=== PATIENT | male | born 1955 | race Hispanic/Latino ===

== ENCOUNTER → 2019-11-08 | Day surgery (SDC) | payer MEDICARE ==
--- NOTE | 2019-10-21 12:36 | Diagnostic Imaging Report ---
Chest, 2 views, 10/21/2019. History: Preop, bladder surgery. Comparison: None available. Findings: The cardiomediastinal silhouette and pulmonary vasculature are within normal limits. The lungs are clear without evidence of consolidation or pleural effusion. Degenerative changes are noted throughout the thoracic spine. There are no acute osseous or soft tissue abnormalities. Impression: No acute cardiopulmonary abnormality. Signed by: King Saldivar on 10/21/2019 12:33 PM
[2019-10-21 13:03] LABS: BASOPHILS % 0.5 % (0.0-1.0); EOSINOPHILS # (AUTO) 0.1 (0.0-0.4); EOSINOPHILS % 1.8 % (0.0-6.0); HEMATOCRIT 46.1 % (38.2-49.6); HEMOGLOBIN 15.6 g/dL (14.0-18.0); LYMPHOCYTES # (AUTO) 2.2 (1.0-3.2); LYMPHOCYTES % 40.7 % (18.0-39.1); MEAN CORPUSCULAR HEMOGLOBIN 28.9 pg (28-32); MEAN CORPUSCULAR HGB CONC 33.8 g/dL (31-35); MEAN CORPUSCULAR VOLUME 85.4 fL (81-99); MONOCYTES # (AUTO) 0.7 (0.2-0.8); MONOCYTES % 12.4 % (4.4-11.3); NEUTROPHILS # (AUTO) 2.4 (2.1-6.9); NEUTROPHILS % 44.4 % (38.7-80.0); PLATELET COUNT 309 x10e3/uL (140-360); RED CELL DISTRIBUTION WIDTH 12.8 % (11.7-14.4)
[~2019-11-08] MED LIST: ACETAMINOPHEN/CODEINE 300MG - 30MG TAB ONE; AMLODIPINE BESY10 MG PO; B&O 60MG R/S 60 MG SUPP PR ONE; CEFAZOLIN SOD 1 GM/NS 50ML 50 ML IV ONE; DEXAMETHASONE SOD PHOS INJ 4 MG/ML VIAL ONE; EPHEDRINE SULFATE INJ 50 MG/ML VIAL ONE; FENTANYL CITRATE/PF 100MCG/2 ML INJ ONE; IOPAMIDOL 300MG/ML 50ML INFUS..BTL IV ONE; LIDOCAINE HCL 2% LOCAL INJ 5 ML SDV VIAL INJ ONE; MICARDIS40 MG PO; MIDAZOLAM HCL 2 MG/2 ML VIAL ONE; NIFEDIPINE ER60 MG PO; ONDANSETRON HCL INJ 2MG/ML 2ML 2 MG/ML VIAL ONE; PROPOFOL IV EMULSION 10 MG/ML 20 ML VIAL ONE; ROCURONIUM BROMIDE 10 MG/ML 5ML VIAL ONE; SEVOFLURANE INHAL SOLN 250 ML PEN BTL ONE; SUGAMMADEX SODIUM 200 MG/2 ML VIAL IV ONE
--- OUTSIDE RECORDS SUMMARY | 2019-11-08 06:15 | XMS REPORT ---
Author Author [facility] Address Unknown Phone Unavailable Care Team Providers Care Video Effects Editor Name Role Phone RISHABH TURNER Unavailable Unavailable GERI WELDON Unavailable Unavailable Problems This patient has no known problems. Allergies, Adverse Reactions, Alerts This patient has no known allergies or adverse reactions. Medications This patient has no known medications. Results Test Description Test Time Test Comments Text Results Atomic Results Result Comments CHEST 2 VIEWS 2019-10-21 12:33:00 [place] [address] Patient Name: MOISÉS RUIZ MR #: [id number] : 1955 Age/Sex: 64/M Req #: [id number] Adm Physician: Ordered by: RISHABH TURNER MD Report #: [id number] Location: OR Room/Bed: Procedure: [id number] DX/CHEST 2 VIEWS Exam Date: 10/21/19 Exam Time: 1210 REPORT STATUS: Signed Chest, 2 views, 10/21/2019. History: Preop, bladd er surgery. Comparison: None available. Findings: The cardiomediastinal silhouette and pulmonary vasculature are within normal limits. The lungs are clear without evidence of consolidation or pleural effusion. Degenerative changes are noted throughout the thoracic spine. There are no acute osseous or soft tissue abnormalities. Impression: No acute cardiopulmonary abnormality. Signed by: Chago Saldivar on 10/21/2019 12:33 PM Dictated By: CHAGO SALDIVAR MD 1233 Transcribed By: PARRISH on 10/21/19 1233 COPY TO: RISHABH TURNER MD CHEST 2 VIEWS 2019-10-07 12:48:00 [place] [address] Patient Name: MOISÉS RUIZ MR #: [id number] : 1955 Age/Sex: 64/M Req #: [id number] Adm Physician: Ordered by: RISHABH TURNER MD Report #: [id number] Location: [facility] Room/Bed: Procedure: [id number] DX/CHEST 2 VIEWS Exam Date: 10/07/19 Exam Time: 1149 REPORT STATUS: Signed EXAMINATION: CHEST 2 VIEWS INDICATION: Hematuria COMPARISON: None FINDINGS: LINES/TUBES:None LUNGS:The lungs are well-inflated. No focal consolidation or pulmonary edema. PLEURA:No pleural effusion or pneumothorax. MEDIASTINUM:The cardiomediastinal silhouette appears normal in size and shape. Atherosclerotic calcifications of the thoracic aorta. BONES/SOFT TISSUES:No acute osseous injury. Mild degenerative changes of the visualized spine. ABDOMEN:No free air under the diaphragm. IMPRESSION: No focal pneumonia or pulmonary edema. Signed by: Ghada Shultz MD on 10/07/2019 12:49 PM Dictated By: GHADA SHULTZ MD 1249 Transcribed By: PARRISH on 10/07/19 1249 COPY TO: RISHABH TURNER MD CT, ABDOMEN 2019-09-12 14:15:00 Reason for exam:->Abdominal painWhat is the patient's sedation requirement?->No Sedation FINAL REPORT ABDOMINAL AND PELVIS CT DATED 09/12/2019 CLINICAL INFORMATION: Abdominal painabdominal pain, hematuria TECHNIQUE: Axial images of the abdomen and pelvis were obtained from diaphragm to the pubic symphysis with intravenous contrast. This exam was performed according to our departmental dose-optimization program, which includes automated exposure control, adjustment of the mA and/or kV according to patient size and/or use of interactive reconstruction technique. COMMENT: Liver and spleen are normal in size without focal abnormality. There is diffusely decreased attenuation liver consistent with a fatty hepatic infiltrate. Gallbladder is contracted. No gallstone or biliary dilatation is noted. Pancreas and adrenals are unremarkable. Both kidneys are normal in size and functioning. No hydronephrosis, hydroureter, urolithiasis is seen. A 2 x 2.1 cm cyst is seen in the upper pole right kidney. 3 additional small subcentimeter cysts are seen in the right kidney measuring up to 8mm in size. Multiple, more than 5, subcentimeter cysts are seen in the left kidney. A 7 mm partially enhancing hypodense lesion is seen in the upper pole left kidney. The urinary bl adder is contracted. A 3.2 x 3.8 cm enhancing mass is seen in the region of the left base of the urinary bladder. Prostate is prominent measuring 3.7 x 4.6 x 4.5 cm. Diverticular disease is seen in the large bowel without diverticulitis. The small bowel and appendix are normal in caliber. IMPRESSION: 1. Mass lesion in the region of the left base of the urinary bladder suspicious for neoplasm. Recommend further evaluation with cystoscopy.2. Bilateral renal cysts.3. Partially enhancing subcentimeter hypodense lesion in the upper pole left kidney. Recommend further evaluation with repeat CT in 6 months.4. Diverticulosis without diverticulitis.5. Fatty liver. Signed: Sabra [place] Verified Date/Time: 09/12/2019 14:15:09 Reading Location: [facility] C013Y CT Body Reading Room ALYSIS W/ MICROSCOPIC 2019-09-12 13:34:00 COLOR (BEAKER) (test lvtb=108) Yellow CLARITY (BEAKER) (test pdtc=625) Clear SPECIFIC GRAVITY UA (BEAKER) (test nupn=083) 1.015 1.001-1.035 PH UA (BEAKER) (test knic=696) 6.5 5.0-8.0 PROTEIN UA (BEAKER) (test frxt=319) 30 mg/dL Negative GLUCOSE UA (BEAKER) (test jdpg=978) Negative Negative KETONES UA (BEAKER) (test luho=675) Negative Negative BILIRUBIN UA (BEAKER) (test wyno=232) Negative Negative BLOOD UA (BEAKER) (test oohv=976) Large Negative NITRITE UA (BEAKER) (test kiux=778) Negative Negative LEUKOCYTE ESTERASE UA (BEAKER) (test xrkg=941) Trace Negative UROBILINOGEN UA (BEAKER) (test lskl=847) 0.2 mg/dL 0.2-1.0 RBC UA (BEAKER) (test kpvw=643) 1468 /HPF WBC UA (BEAKER) (test zslq=085) 27 /HPF MUCUS (BEAKER) (test tdso=1722) Few SOURCE(BEAKER) (test yakl=4043) HEPATIC FUNCTION [id number] 12:09:00* Test Item Value Reference Range Comments TOTAL PROTEIN (BEAKER) (test dyjp=497) 7.0 gm/dL 6.0-8.3 ALBUMIN (BEAKER) (test mvzz=8860) 4.2 g/dL 3.5-5.0 BILIRUBIN TOTAL (BEAKER) (test aepr=149) 0.6 mg/dL 0.2-1.2 BILIRUBIN DIRECT (BEAKER) (test jmgf=649) 0.2 mg/dL 0.1-0.5 ALKALINE PHOSPHATASE (BEAKER) (test ddqv=905) 85 U/L 40-150 AST (SGOT) (BEAKER) (test ivnw=486) 18 U/L 5-34 ALT (SGPT) (BEAKER) (test vkbm=528) 23 U/L 6-55 BASIC METABOLIC [id number] 12:09:00* Test Item Value Reference Range Comments SODIUM (BEAKER) (test bosx=821) 140 meq/L 136-145 POTASSIUM (BEAKER) (test tuqq=128) 3.8 meq/L 3.5-5.1 CHLORIDE (BEAKER) (test cmvf=588) 106 meq/L 98-107 CO2 (BEAKER) (test glux=131) 26 meq/L 22-29 BLOOD UREA NITROGEN (BEAKER) (test tzsh=874) 15 mg/dL 7-21 CREATININE (BEAKER) (test qkfx=250) 0.88 mg/dL 0.57-1.25 GLUCOSE RANDOM (BEAKER) (test fylx=669) 105 mg/dL 70-105 CALCIUM (BEAKER) (test sson=159) 9.1 mg/dL 8.4-10.2 EGFR (BEAKER) (test ondf=3664) INSUFFICIENT CLINICAL DATA TO CALCULATE ESTIMATED GFR. PT/[id number] 12:03:00* Test Item Value Reference Range Comments PROTIME (BEAKER) (test ooay=327) 14.0 seconds 11.9-14.2 INR (BEAKER) (test fvkk=006) 1.1 <=5.9 PARTIAL THROMBOPLASTIN TIME (BEAKER) (test atmx=998) 31.8 seconds 22.5-36.0 Effective 02/16/2019: PT Reference Range ChangeNew: 11.9-14.2 Previous: 11.7-14. 7RECOMMENDED COUMADIN/WARFARIN INR THERAPY RANGESSTANDARD DOSE: 2.0-3.0 Include s: PROPHYLAXIS for venous thrombosis, systemic embolization; TREATMENT for venou s thrombosis and/or pulmonary embolus.HIGH RISK: Target INR is 2.5-3.5 for patie nts wiht mechanical heart valves.CBC W/PLT COUNT & AUTO [id number] 11:55:00* Test Item Value Reference Range Comments WHITE BLOOD CELL COUNT (BEAKER) (test stjc=029) 5.1 K/ L 3.5-10.5 RED BLOOD CELL COUNT (BEAKER) (test xnlf=404) 5.56 M/ L 4.63-6.08 HEMOGLOBIN (BEAKER) (test qinc=250) 15.9 GM/DL 13.7-17.5 HEMATOCRIT (BEAKER) (test bces=137) 47.3 % 40.1-51.0 MEAN CORPUSCULAR VOLUME (BEAKER) (test ekyn=974) 85.1 fL 79.0-92.2 MEAN CORPUSCULAR HEMOGLOBIN (BEAKER) (test fpsz=544) 28.6 pg 25.7-32.2 MEAN CORPUSCULAR HEMOGLOBIN CONC (BEAKER) (test qple=833) 33.6 GM/DL 32.3-36.5 RED CELL DISTRIBUTION WIDTH (BEAKER) (test ffhz=578) 12.8 % 11.6-14.4 PLATELET COUNT (BEAKER) (test jlba=242) 291 K/CU MM 150-450 MEAN PLATELET VOLUME (BEAKER) (test lvxg=296) 9.0 fL 9.4-12.4 NUCLEATED RED BLOOD CELLS (BEAKER) (test bwmd=564) 0 /100 WBC 0-0 NEUTROPHILS RELATIVE PERCENT (BEAKER) (test ydrf=860) 51 % LYMPHOCYTES RELATIVE PERCENT (BEAKER) (test hdrc=449) 36 % MONOCYTES RELATIVE PERCENT (BEAKER) (test hwqb=547) 10 % EOSINOPHILS RELATIVE PERCENT (BEAKER) (test giay=632) 2 % BASOPHILS RELATIVE PERCENT (BEAKER) (test mbkf=786) 1 % NEUTROPHILS ABSOLUTE COUNT (BEAKER) (test efmp=018) 2.58 K/ L 1.78-5.38 LYMPHOCYTES ABSOLUTE COUNT (BEAKER) (test yhxf=924) 1.83 K/ L 1.32-3.57 MONOCYTES ABSOLUTE COUNT (BEAKER) (test rjsu=319) 0.53 K/ L 0.30-0.82 EOSINOPHILS ABSOLUTE COUNT (BEAKER) (test rqtd=124) 0.12 K/ L 0.04-0.54 BASOPHILS ABSOLUTE COUNT (BEAKER) (test pjak=292) 0.04 K/ L 0.01-0.08 IMMATURE GRANULOCYTES-RELATIVE PERCENT (BEAKER) (test mdfw=0529) 0 % 0-1
[2019-11-08 12:00] VITALS: BP 162/88
--- NOTE | 2019-11-08 21:39 | Operative Report ---
DATE OF PROCEDURE: 11/08/2019 SURGEON: Mil Trujillo MD PREOPERATIVE DIAGNOSES: 1. Hematuria. 2. Bladder tumour. 3. Obstructed left ureteral orifice. 4. Frequency. 5. BPH. POSTOPERATIVE DIAGNOSES: 1. Hematuria. 2. Bladder tumour. 3. Obstructed left ureteral orifice. 4. Frequency. 5. BPH. OPERATIONS PERFORMED: 1. Cystoscopy and right retrograde pyelograms under fluoroscopic control. This was done as part of the assessment of hematuria, not related to other side. 2. Left retrograde pyelograms under fluoroscopic control. The orifice is covered by the bladder tumor. 3. Placement of double-J stent, 7-Lebanese 24 cm long to the left side. 4. Interpretation of x-ray, radiologist not present. 5. Supervision of fluoroscopy, radiologist not present. 6. Transurethral resection of tumor, larger than 5 cm. CORPORATE COUNSEL: None. ANESTHESIA: General. CLINICAL INDICATION NOTE: This is a 64-year-old patient was brought for assessment of hematuria and suspected tumour of the bladder. The procedure was discussed with the patient. Potential benefits and complications discussed, explained, and accepted. DESCRIPTION OF PROCEDURE AND FINDINGS: After proper level of anesthesia was achieved, the patient was placed in lithotomy position, prepped and draped in a sterile fashion. dilated to 28-Lebanese. Following this, the scope was inserted. The bladder outlet was obstructed, very small prostate, 3 lobal prostate, 2 lateral and 1 medial. The bladder itself was trabeculated. The right UO was identified easily. On the left side of the bladder, there was large tumour covering the area of the trigone where the UO was expected. Open-end catheter was inserted to the right side and retrograde pyelogram demonstrated normal upper collecting system and ureter. With some difficulty, it was possible to place a catheter into the left collecting system. Retrograde pyelogram did not demonstrate hydronephrosis. The wire was kept in place and a 7-Lebanese 24 cm long double-J stent was properly positioned. Following this, resectoscope was inserted and systematic resection of all the tumour on the left side of the bladder was done. The superficial and deep cut were altogether to Pathology for analysis. Any visible bleeding points were carefully coagulated. Following the resection, any remnant chips in the bladder was evacuated and the bladder was irrigated with water. Following this, a 22-Lebanese 30 mL balloon Reid catheter three way was inserted, connected to continuous irrigation with water. The patient was transferred in satisfactory condition to recovery room. If no problem will occur, he will be discharged with a Reid and will be followed as outpatient. MD DALLAS Melo/CARI /[id number]
== END | disposition home or self-care (01) ==
LOC: OR 06:12
PROVIDERS: ATTEND Urology
DX: C67.0 Malignant neoplasm of trigone of bladder (principal); N13.5 Crossing vessel and stricture of ureter without hydronephrosis; N40.0 Benign prostatic hyperplasia without lower urinary tract symptoms; N32.89 Other specified disorders of bladder; I10 Essential (primary) hypertension; E11.9 Type 2 diabetes mellitus without complications; K58.9 Irritable bowel syndrome, unspecified; M54.9 Dorsalgia, unspecified; E78.5 Hyperlipidemia, unspecified; F32.9 Major depressive disorder, single episode, unspecified; Z01.810 Encounter for preprocedural cardiovascular examination; Z01.812 Encounter for preprocedural laboratory examination; Z01.818 Encounter for other preprocedural examination
CPT/HCPCS: 36415 ×2; 52240; 52332; 71046; 74420; 82948; 85025; 88305; 93005; C1758; C2617; J0690; J1100; J2001; J2250; J2405; J2704; J3010; Q9967

== ENCOUNTER 2019-11-10 20:13 | Emergency (ER) | payer MEDICARE ==
[~2019-11-10] VITALS: Ht 172.7 cm; Wt 78.0 kg
[~2019-11-10 20:13] MED LIST changes: -ACETAMINOPHEN/CODEINE 300MG - 30MG TAB ONE; -B&O 60MG R/S 60 MG SUPP PR ONE; -CEFAZOLIN SOD 1 GM/NS 50ML 50 ML IV ONE; -DEXAMETHASONE SOD PHOS INJ 4 MG/ML VIAL ONE; -EPHEDRINE SULFATE INJ 50 MG/ML VIAL ONE; -FENTANYL CITRATE/PF 100MCG/2 ML INJ ONE; -IOPAMIDOL 300MG/ML 50ML INFUS..BTL IV ONE; -LIDOCAINE HCL 2% LOCAL INJ 5 ML SDV VIAL INJ ONE; -MIDAZOLAM HCL 2 MG/2 ML VIAL ONE; -ONDANSETRON HCL INJ 2MG/ML 2ML 2 MG/ML VIAL ONE; -PROPOFOL IV EMULSION 10 MG/ML 20 ML VIAL ONE; -ROCURONIUM BROMIDE 10 MG/ML 5ML VIAL ONE; -SEVOFLURANE INHAL SOLN 250 ML PEN BTL ONE; -SUGAMMADEX SODIUM 200 MG/2 ML VIAL IV ONE
[2019-11-10] MEDS ORDERED: HYDROMORPHONE 1MG/1ML INJ IV STA (20:47)
[2019-11-10] MEDS ORDERED: ONDANSETRON HCL INJ 2MG/ML 2ML 2 MG/ML VIAL IV STA (20:47)
[2019-11-10 21:23] LABS: BASOPHILS % 0.3 % (0.0-1.0); EOSINOPHILS % 0.4 % (0.0-6.0); HEMATOCRIT 51.1 % (38.2-49.6); HEMOGLOBIN 17.5 g/dL (14.0-18.0); LYMPHOCYTES # (AUTO) 1.3 (1.0-3.2); LYMPHOCYTES % 12.2 % (18.0-39.1); MEAN CORPUSCULAR HEMOGLOBIN 29.2 pg (28-32); MEAN CORPUSCULAR HGB CONC 34.2 g/dL (31-35); MEAN CORPUSCULAR VOLUME 85.3 fL (81-99); MONOCYTES # (AUTO) 0.7 (0.2-0.8); MONOCYTES % 6.4 % (4.4-11.3); NEUTROPHILS # (AUTO) 8.8 (2.1-6.9); NEUTROPHILS % 80.4 % (38.7-80.0); PLATELET COUNT 302 x10e3/uL (140-360); RED BLOOD COUNT 5.99 x10e6/uL (4.3-5.7); RED CELL DISTRIBUTION WIDTH 12.8 % (11.7-14.4)
[2019-11-10 21:43] LABS: ALBUMIN 4.1 g/dL (3.5-5.0); ALBUMIN/GLOBULIN RATIO 1.2 (0.8-2.0); ANION GAP 14.6 mmol/L (8-16); CREATININE, SERUM 1.22 mg/dL (0.72-1.25); POTASSIUM 3.6 mmol/L (3.5-5.1)
[2019-11-10] MEDS ORDERED: LIDOCAINE JELLY 2% 10ML URO-JET TOP ONE (21:45)
[2019-11-10 22:19] LABS: CLARITY,URINE CLOUDY (CLEAR); COLOR,URINE RED (YELLOW)
[2019-11-10 22:20] LABS: BILIRUBIN,URINE SMALL (NEGATIVE); KETONES,URINE 1+ (NEGATIVE); LEUKOCYTE ESTERASE ,URINE TRACE (NEGATIVE); PROTEIN,URINE DIPSTICK 3+ (NEGATIVE); URINE UROBILINOGEN 1 mg/dL (0.2 - 1)
[2019-11-10 22:26] LABS: NITRITE,URINE NEGATIVE (NEGATIVE); WBC,URINE (MAN) 0-5 /HPF (0-5)
[2019-11-10 22:27] LABS: BACTERIA,URINE RARE /HPF; EPITHELIAL CELLS,URINE RARE /LPF; RBC,URINE 21-50 /HPF (0-5)
[2019-11-10 22:44] VITALS: BP 146/114
== END 2019-11-10 23:18 | disposition home or self-care (01) ==
LOC: ER 20:13
DX: R10.32 Left lower quadrant pain (principal); R33.9 Retention of urine, unspecified; N40.1 Benign prostatic hyperplasia with lower urinary tract symptoms; I10 Essential (primary) hypertension; Z85.51 Personal history of malignant neoplasm of bladder
CPT/HCPCS: 36415; 51703; 80053; 81001; 85025; 87086; 99284; J1170; J2405

== ENCOUNTER 2019-11-12 07:36 | Inpatient (IN) | payer MEDICARE ==
[2019-11-12] VITALS (8 sets, daily range): BP systolic 107–151; BP diastolic 80–97
[~2019-11-12] VITALS: Ht 172.7 cm; Wt 78.0 kg
--- NOTE | 2019-11-12 08:07 | NUR ---
BLADDER SCANNER FOUND 15-30 MLS URINE IN BLADDER ON ARRIVAL TO HOSPITAL
[2019-11-12] MEDS ORDERED: SODIUM CHLORIDE 0.9% 1000ML 1,000 ML IV STA (08:15)
[2019-11-12 08:16] LABS: BASOPHILS % 0.3 % (0.0-1.0); EOSINOPHILS # (AUTO) 0.2 (0.0-0.4); EOSINOPHILS % 1.4 % (0.0-6.0); HEMATOCRIT 48.3 % (38.2-49.6); HEMOGLOBIN 16.4 g/dL (14.0-18.0); LYMPHOCYTES # (AUTO) 1.6 (1.0-3.2); LYMPHOCYTES % 13.7 % (18.0-39.1); MEAN CORPUSCULAR VOLUME 85.3 fL (81-99); MONOCYTES % 8.9 % (4.4-11.3); NEUTROPHILS # (AUTO) 8.6 (2.1-6.9); NEUTROPHILS % 75.3 % (38.7-80.0); PLATELET COUNT 325 x10e3/uL (140-360); RED BLOOD COUNT 5.66 x10e6/uL (4.3-5.7); RED CELL DISTRIBUTION WIDTH 12.9 % (11.7-14.4)
[2019-11-12 08:22] LABS: COLOR,URINE AMBER (YELLOW)
[2019-11-12 08:23] LABS: KETONES,URINE TRACE (NEGATIVE); LEUKOCYTE ESTERASE ,URINE TRACE (NEGATIVE); NITRITE,URINE POSITIVE (NEGATIVE); PROTEIN,URINE DIPSTICK 3+ (NEGATIVE); URINE UROBILINOGEN 1 mg/dL (0.2 - 1)
[2019-11-12 08:24] LABS: BILIRUBIN,URINE MODERATE (NEGATIVE); CLARITY,URINE CLOUDY (CLEAR)
[2019-11-12 08:37] LABS: BACTERIA,URINE MODERATE /HPF; RBC,URINE >50 /HPF (0-5)
[2019-11-12 08:38] LABS: EPITHELIAL CELLS,URINE FEW /LPF; MUCUS,URINE FEW (RARE)
[2019-11-12 08:41] LABS: ALANINE AMINOTRANSFERASE 31 IU/L (0-55); ALBUMIN 3.8 g/dL (3.5-5.0); ALBUMIN/GLOBULIN RATIO 1.2 (0.8-2.0); ALKALINE PHOSPHATASE 89 IU/L (40-150); ANION GAP 13.6 mmol/L (8-16); BLOOD UREA NITROGEN 23 mg/dL (7-26); BUN/CREATININE RATIO 22 (6-25); CALCIUM 9.5 mg/dL (8.4-10.2); CARBON DIOXIDE 28 mmol/L (22-29); CHLORIDE 100 mmol/L (98-107); CREATININE, SERUM 1.03 mg/dL (0.72-1.25); EST GLOMERULAR FILTRATION RATE > 60 ML/MIN (60-); GLUCOSE 147 mg/dL (74-118); POTASSIUM 3.6 mmol/L (3.5-5.1); SODIUM 138 mmol/L (136-145)
--- NOTE | 2019-11-12 09:19 | Diagnostic Imaging Report ---
EXAM: CT Abdomen and Pelvis WITHOUT contrast INDICATION: ^Stone Protocol, BLAD TUMOR RESECTED 11/08, LEFT STENT, PAIN ^[id number] ^[id number] ^Y COMPARISON: None. TECHNIQUE: Abdomen and pelvis were scanned utilizing a multidetector helical scanner from the lung base to the pubic symphysis without administration of IV contrast. Absence of intravenous contrast decreases sensitivity for detection of focal lesions and vascular pathology. Coronal and sagittal reformations were obtained. Routine protocol was performed. IV CONTRAST: None ORAL CONTRAST: Water COMPLICATIONS: None RADIATION DOSE: Total DLP: 319.26 mGy-cm Estimated effective dose: (DLP x 0.015 x size factor) mSv CTDIvol has been reviewed. It is below the limits set by the Radiation Protocol Committee (RPC). FINDINGS: LINES and TUBES: There is a left nephroureteral stent placed. LOWER THORAX: There is bibasilar atelectasis. HEPATOBILIARY: No biliary ductal dilation. GALLBLADDER: No radio-opaque stones or sludge. No wall thickening. SPLEEN: No splenomegaly. PANCREAS: No focal masses or ductal dilatation. ADRENALS: No adrenal nodules KIDNEYS/URETERS: No hydronephrosis. There is a 2.2 complex cyst arising from upper pole of the right kidney. There is a 3.1 cm exophytic lesion arising from upper pole left kidney (series 3, image 44). Both of the aforementioned lesions are incompletely characterized exam on this noncontrast exam. No stones.There is a left nephroureteral stent in place. GI TRACT: No abnormal distention, wall thickening, or evidence of bowel obstruction. Appendix is normal. PELVIC ORGANS/BLADDER: The bladder is thick walled surrounding a Reid catheter likely due to underdistention. LYMPH NODES: No lymphadenopathy. VESSELS: Unremarkable. PERITONEUM / RETROPERITONEUM: No free air or fluid. BONES: There are degenerative changes in the lumbar spine. SOFT TISSUES: Unremarkable. IMPRESSION: Left nephroureteral stent in place. No nephroureterolithiasis or hydroureteronephrosis. Bilateral renal lesions as described are incompletely characterized on this noncontrast exam. Recommend follow-up nonemergent CT multiphase renal protocol. Signed by: Saul Solares MD on 11/12/2019 9:17 AM
[2019-11-12] MEDS ORDERED: MORPHINE SULFATE 2 MG/ML SYR 1ML IV STA (09:49)
[2019-11-12] MEDS ORDERED: ONDANSETRON HCL INJ 2MG/ML 2ML 2 MG/ML VIAL IV STA (09:49)
[2019-11-12] MEDS ORDERED: MEROPENEM 1 GM VIAL ONE (09:52)
[2019-11-12] MEDS ORDERED: SODIUM CHLORIDE 0.9% 100 ML ONE (09:54)
--- NOTE | 2019-11-12 11:18 | NUR ---
H&P cc: left flank pain HPI: 64yoM, PCP , with bladder mass, underwent resection 4 days ago, with stent placed to left ureter?, now developed left flank pain with chills. Pain radiate to left groin. PMH: bladder mass s/p resection 4 days ago (10/2019), HTN, PreDM PSHx: bladder mass resection Allergie;s see emr FH/SH; ; no cigs meds; see MAR ROS: no f/cp/sob/dizziness/cp/skin rash/diarrhea/nausea/confusion/focal limb weakness v/s; revd PE tired appearing anicteric ns1s2 mod bs soft; left flank tender; Mock in place no e/t skin dry n. affect labs/meds revd A/P: Complicated UTI- merrem Acute left phyelonephritis- iv abx Left utereteral disease- stent placed HTN- home meds PreDM- check labs Overweight BMI 26.2 Prop: scd Dispo; f/u labs; Rick Moss MD,PhD
[2019-11-12] MEDS: SODIUM CHLORIDE 0.9% 1000ML 1,000 ML IV SCH ×2 (11:23→19:50)
--- NOTE | 2019-11-12 11:29 | NUR ---
DR MONTAÑO AT BS FOR [place]
[2019-11-12] MEDS ORDERED: ACETAMINOPHEN 325 MG TAB PO PRN (11:30)
[2019-11-12] MEDS: NIFEDIPINE CR 30 MG TAB PO SCH (11:57)
[2019-11-12] MEDS ORDERED: MEROPENEM 1GRAM 1 GM in SODIUM CHLORIDE 0.9% 100 ML 100 ML IV SCH (14:00)
[2019-11-12] MEDS: MORPHINE SULFATE INJ 4 MG/ML INJ 1ML IV PRN (15:05)
[2019-11-12] MEDS ORDERED: MEROPENEM 1GM 100 ML IV SCH (18:00)
[2019-11-12] MEDS: DOCUSATE SODIUM 100 MG CAP PO SCH (18:19)
--- NOTE | 2019-11-12 19:37 | NUR ---
patient c/o left flank pain, states "No one is listening to me, the doctors or the nurses, I dont get relief from this pain, pain is getting worse" states s/p left urinary stent placement states "after two days pain became worse not better on day 2", requesting that MD be notified of his pain, and area of pain, requesting US or the area be completed for evaluation
--- NOTE | 2019-11-12 19:46 | NUR ---
JACQUELINECORBIN NOTIFIED " THAT PATIENT IS REQUESTING CONSULT WITH HIM BECAUSE HE REMAIN IN PAIN WITH NO RELIEF FROM MORPHINE", HE STATED "I DIDNT PUT THE STENT IN MD TURNER PLACED WITH STENT, AND THE PAIN IS NORMAL", PATIENT WAS INFORMED THAT THE DISCOMFORT FROM THE STENT PLACEMENT IS NORMAL AND WILL SUBSIDE WTIH TIME, WE WILL CLOSELY MONITOR PATIENT AND ADMINISTER PAIN MEDICATION, CONTINUE TO COMPLAIN OF CONSTIPATION, PRUNE JUICE GIVEN, STOOL SOFTENERS ON BOARD
--- NOTE | 2019-11-12 20:42 | NUR ---
patient and family requesting something for constipation MD Clovis MONTAÑO CONTACT VIA TELEPHONE
[2019-11-12] MEDS ORDERED: ZOLPIDEM TARTRATE 5 MG TAB PO PRN (21:00)
--- NOTE | 2019-11-12 21:10 | NUR ---
MD MONTAÑO CONTACTED VIA TELEPHONE, INFORMED THAT PATIENT IS CONSTIPATED IN PAIN UNABLE TO HAVE BM, GFR LAB GIVEN, ORDERED MOM 30CCC PO NOW, AND THEN DAILY, ORDERED TO CONTINUE COLACE BID, START SENNA 1 TABLET NOW AND THEN BID, ORDER CARRIED OUT PATIENT AND FAMILY INFORMED OF PLAN OF CARE
[2019-11-12] MEDS ORDERED: MAGNESIUM HYDROXIDE 30 ML UDC PO ONE (21:15)
[2019-11-12] MEDS: SENNOSIDES 8.6 MG TAB PO SCH (21:35)
[2019-11-12] MEDS: ONDANSETRON HCL INJ 2MG/ML 2ML 2 MG/ML VIAL IV PRN (22:28)
--- NOTE | 2019-11-12 22:41 | NUR ---
PARKINSON DUMPED 600CC/TANIYA COLORED URINE WITH SEDIMENTATION, PATIENT C/O NAUSEA, STATED "i NEED TO MAKE MYSELF THROWUP", PLACED HIS FINGER DOWN THROAT TO INDUCE VOMITING, AFTERWARD, RESTING IN BED, ZOFRAN IV GIVEN, NO CURRENT EPISODE OF N/V, PATIENT CONTINUES TO STATE "IT HURTS WHEN I PEE", PARKINSON IN PLACE DRAINING WELL, RESUME IRRIGATION STATING "OH HELL NO IT WILL HURT TO BAD", NO IRRIGATION PERFORMED, PATIENT FAMILY AND AT BEDSIDE, VISIBLY AND VERBALLY UPSET ABOUT PATIENT BEING IN PAIN, MD MONTAÑO CALLED MADE AWARE VIA TELEPHONE, THAT " PATIENT IS NAUSEATED, VOMITING, AND HIS DURING PALPATION IS MORE RIGID THAN AT BEFORE, BUT HAS GOOD BOWEL SOUNDS", ORDERED TO MAKE PATIENT NPO, GIVEN PHENERGAN IV IF ZOFRAN INEFFECTIVE, PATIENT RESTING IN BED WITH LEFT AC IV PATENT, NO INFILTRATION NOTED, IV HYDRATION INFUSING AT CURRENT ORDERED RATE
[2019-11-12] MEDS ORDERED: PROMETHAZINE 12.5MG/ NACL 0.9% 12.5 MG/50 ML BAG IV PRN (22:45)
[2019-11-13] VITALS (9 sets, daily range): BP systolic 108–144; BP diastolic 63–95
[2019-11-13] MEDS: MEROPENEM 1GM 100 ML IV SCH ×4 (02:11→21:00)
[2019-11-13 05:21] LABS: BASOPHILS % 0.4 % (0.0-1.0); EOSINOPHILS # (AUTO) 0.3 (0.0-0.4); EOSINOPHILS % 3.1 % (0.0-6.0); HEMATOCRIT 41.1 % (38.2-49.6); HEMOGLOBIN 13.6 g/dL (14.0-18.0); LYMPHOCYTES # (AUTO) 1.4 (1.0-3.2); LYMPHOCYTES % 17.2 % (18.0-39.1); MEAN CORPUSCULAR HEMOGLOBIN 28.5 pg (28-32); MEAN CORPUSCULAR HGB CONC 33.1 g/dL (31-35); MEAN CORPUSCULAR VOLUME 86.2 fL (81-99); NEUTROPHILS # (AUTO) 5.6 (2.1-6.9); NEUTROPHILS % 66.8 % (38.7-80.0); PLATELET COUNT 282 x10e3/uL (140-360); RED BLOOD COUNT 4.77 x10e6/uL (4.3-5.7); RED CELL DISTRIBUTION WIDTH 12.7 % (11.7-14.4)
[2019-11-13 05:47] LABS: ALANINE AMINOTRANSFERASE 23 IU/L (0-55); ALBUMIN 3.1 g/dL (3.5-5.0); ALBUMIN/GLOBULIN RATIO 1.1 (0.8-2.0); ALKALINE PHOSPHATASE 72 IU/L (40-150); ANION GAP 10.5 mmol/L (8-16); BLOOD UREA NITROGEN 17 mg/dL (7-26); BUN/CREATININE RATIO 20 (6-25); CALCIUM 8.7 mg/dL (8.4-10.2); CARBON DIOXIDE 28 mmol/L (22-29); CHLORIDE 105 mmol/L (98-107); CREATININE, SERUM 0.84 mg/dL (0.72-1.25); EST GLOMERULAR FILTRATION RATE > 60 ML/MIN (60-); GLUCOSE 106 mg/dL (74-118); POTASSIUM 3.5 mmol/L (3.5-5.1); SODIUM 140 mmol/L (136-145)
--- NOTE | 2019-11-13 07:03 | NUR ---
BSSR GIVEN TO ONCOMING SHIFT RN KAITLYN , PATIENT STABLE, VSS, AFEBRILE, IN BED, CALL LIGHT WITHIN REACH, VERBALIZED PATIENT CONTINUED PLAN OF CARE, BED IN LOWEST POSITION, LABS PENDING THIS AM
--- NOTE | 2019-11-13 07:08 | NUR ---
IM- progress note O/N see below ROS: no f/cp/sob/dizziness/cp/skin rash/diarrhea/nausea/confusion/focal limb weakness v/s; revd PE tired appearing anicteric ns1s2 mod bs soft; left flank tender; Mock in place no e/t skin dry n. affect labs/meds revd A/P: Complicated UTI- merrem Acute left phyelonephritis- iv abx Left utereteral disease- stent placed HTN- home meds PreDM- check labs Overweight BMI 26.2 Prop: scd Dispo; f/u labs; 11/13 cont care; f/u cultures; Rick Moss MD,PhD
[2019-11-13 07:37] LABS: CHOL/HDL RATIO 3.4 (3.9-4.7)
[2019-11-13] MEDS: NIFEDIPINE CR 30 MG TAB PO SCH ×2 (09:00→14:32)
[2019-11-13] MEDS ORDERED: AMLODIPINE BESYLATE 10 MG TAB PO SCH (09:00)
[2019-11-13] MEDS: SENNOSIDES 8.6 MG TAB PO SCH ×3 (09:00→14:40)
[2019-11-13] MEDS: DOCUSATE SODIUM 100 MG CAP PO SCH ×2 (09:00→14:32)
[2019-11-13] MEDS ORDERED: MAGNESIUM HYDROXIDE 30 ML UDC PO PRN (09:00)
[2019-11-13] MEDS ORDERED: BISACODYL 10 MG SUPP PR ONE (12:00)
[2019-11-13] MEDS: MORPHINE SULFATE INJ 4 MG/ML INJ 1ML IV PRN ×2 (14:14→22:30)
--- NOTE | 2019-11-13 19:10 | NUR ---
BEDSIDE SHIFT REPORT RECEIVED FROM PIEDAD SAHNI, PATIENT AOX4, FAMILY AT BEDSIDE, REPORTED PATIENT HAD MULTIPLE BM TODAY, PAIN LEVEL MORE TOLERABLE, BED IN LOWEST POSITION, CALL LIGHT WITHIN REACH
[2019-11-13] MEDS: ONDANSETRON HCL INJ 2MG/ML 2ML 2 MG/ML VIAL IV PRN (22:30)
[2019-11-14] VITALS (12 sets, daily range): BP systolic 128–161; BP diastolic 77–88
[2019-11-14] MEDS: MEROPENEM 1GM 100 ML IV SCH ×3 (05:03→22:06)
--- NOTE | 2019-11-14 07:05 | NUR ---
bedside shift report received from regulatory affairs portfolio leader RN, kern in place, draining straw-colored urine. pt has no complaints at this time, no signs of distress.
[2019-11-14] MEDS: NIFEDIPINE CR 30 MG TAB PO SCH (09:10)
[2019-11-14] MEDS: SENNOSIDES 8.6 MG TAB PO SCH (09:13)
[2019-11-14] MEDS: DOCUSATE SODIUM 100 MG CAP PO SCH ×2 (09:13→17:54)
--- NOTE | 2019-11-14 11:57 | NUR ---
IM- progress note O/N see below ROS: no f/cp/sob/dizziness/cp/skin rash/diarrhea/nausea/confusion/focal limb weakness v/s; revd PE tired appearing anicteric ns1s2 mod bs soft; left flank tender; Mock in place no e/t skin dry n. affect labs/meds revd A/P: Complicated UTI- merrem Acute left phyelonephritis- iv abx Left utereteral disease- stent placed HTN- home meds PreDM- check labs Overweight BMI 26.2 Prop: scd Dispo; f/u labs; 11/13 cont care; f/u cultures; 11/14 iv abx; advance diet; d/c planning; Rick Moss MD,PhD
--- NOTE | 2019-11-14 14:34 | NUR ---
spoke with Dr. Albrecht concerning pt's complaint of left flank pain. Dr. Albrecht states he has spoken with the pt and told him the pain he is experiencing is normal and that we cannot remove the kern at this time. Pt given IV Morphine and Zofran for pain. will continue to monitor.
[2019-11-14] MEDS: MORPHINE SULFATE INJ 4 MG/ML INJ 1ML IV PRN ×2 (14:40→19:26)
[2019-11-14] MEDS: ONDANSETRON HCL INJ 2MG/ML 2ML 2 MG/ML VIAL IV PRN ×2 (14:40→19:26)
--- NOTE | 2019-11-14 19:26 | NUR ---
Patient received sitting up in bed. AAO x 4. Patient had no complaints of left flank pain(7/10). Respirations even and non-labored. Fall precautions implemented. Patient instructed to call for assistance when needed. Call light within reach.
[2019-11-15 00:43] VITALS: BP 121/60
[2019-11-15] MEDS: MORPHINE SULFATE INJ 4 MG/ML INJ 1ML IV PRN ×3 (04:27→15:11)
[2019-11-15 05:12] VITALS: BP 148/68
[2019-11-15] MEDS: MEROPENEM 1GM 100 ML IV SCH ×2 (05:54→14:00)
--- NOTE | 2019-11-15 06:49 | NUR ---
D/C summary Principal Dx: Complicated UTI- merrem Acute left phyelonephritis- iv abx Left utereteral disease- stent placed Secondary Dx: HTN- home meds PreDM- check labs Overweight BMI 26.2 Prop: scd Dispo; f/u labs; 11/13 cont care; f/u cultures; 11/14 iv abx; advance diet; d/c planning; 11/15 stable d/c home f/u pcp 2-4 days stable d/c>35mins Rick Moss MD,PhD
--- NOTE | 2019-11-15 07:00 | NUR ---
Walking rounds done. Patient resting comfortably. BSSR given to oncoming nurse.
--- NOTE | 2019-11-15 07:07 | NUR ---
bedside shift report received, no signs of distress. kern in place, draining clear, yellow urine. pt has no complaints at this time.
[2019-11-15 07:51] VITALS: BP 144/79
[2019-11-15 07:56] VITALS: BP 144/79
[2019-11-15] MEDS ORDERED: ONDANSETRON HCL 4 MG ORAL DISINTEGRATING TAB PO PRN (09:15)
--- NOTE | 2019-11-15 09:45 | NUR ---
IMM letter delivered and explained to pt and family at bedside. They verbalized understanding. Signed copy placed in chart. Copy to pt.
[2019-11-15] MEDS: NIFEDIPINE CR 30 MG TAB PO SCH (11:12)
[2019-11-15] MEDS: DOCUSATE SODIUM 100 MG CAP PO SCH ×2 (11:12→17:52)
[2019-11-15] MEDS: SENNOSIDES 8.6 MG TAB PO SCH (11:12)
[2019-11-15 11:52] VITALS: BP 152/92
[2019-11-15 16:28] VITALS: BP 177/104
[2019-11-15] MEDS ORDERED: KEFLEX500 MG PO (17:31)
== END 2019-11-15 18:06 | disposition home or self-care (01) | DRG 699 ==
LOC: ER 07:36 → ERHOLD 09:57 → MED/SURG2 12:10
PROVIDERS: ADMIT Internal Medicine; ATTEND Internal Medicine
DX: T83.592A Infection and inflammatory reaction due to indwelling ureteral stent, initial encounter (principal); N10 Acute pyelonephritis; I10 Essential (primary) hypertension; R73.03 Prediabetes; E66.3 Overweight; Z68.26 Body mass index [BMI] 26.0-26.9, adult; Z96.0 Presence of urogenital implants; Z98.890 Other specified postprocedural states
CPT/HCPCS: 36415; 74176; 80053; 80061; 81001; 83036; 85025; 87086; 96360; 99284; J2185; J2270; J2405; J7030; J7050

== ENCOUNTER → 2020-01-19 | Day surgery (SDC) | payer MEDICARE ==
[2020-01-17 12:35] LABS: BASOPHILS % 0.6 % (0.0-1.0); EOSINOPHILS # (AUTO) 0.2 (0.0-0.4); EOSINOPHILS % 3.7 % (0.0-6.0); HEMATOCRIT 40.5 % (38.2-49.6); HEMOGLOBIN 14.2 g/dL (14.0-18.0); LYMPHOCYTES # (AUTO) 2.6 (1.0-3.2); LYMPHOCYTES % 40.3 % (18.0-39.1); MEAN CORPUSCULAR HEMOGLOBIN 29.1 pg (28-32); MEAN CORPUSCULAR HGB CONC 35.1 g/dL (31-35); MONOCYTES # (AUTO) 0.8 (0.2-0.8); MONOCYTES % 12.3 % (4.4-11.3); NEUTROPHILS # (AUTO) 2.8 (2.1-6.9); NEUTROPHILS % 42.9 % (38.7-80.0); PLATELET COUNT 341 x10e3/uL (140-360); RED BLOOD COUNT 4.88 x10e6/uL (4.3-5.7)
--- NOTE | 2020-01-17 12:53 | Diagnostic Imaging Report ---
EXAM: CHEST 2 VIEWS DATE: 01/17/2020 12:23 PM INDICATION: Properly evaluation COMPARISON: 10/21/2019 FINDINGS: The trachea is midline. The lungs are symmetrically expanded without evidence for large focal consolidation, pneumothorax, or significant pleural effusion. The cardiomediastinal silhouette is stable in appearance. Degenerative changes again noted of the thoracic spine. No acute osseous abnormality is identified. The surrounding soft tissues are unremarkable. IMPRESSION: No acute cardiopulmonary process or significant interval change identified from 10/21/2019. Signed by: Dr. Andrew Pinto MD on 01/17/2020 12:50 PM
[~2020-01-19] MED LIST changes: +B&O 60MG R/S 60 MG SUPP PR ONE; +CEFAZOLIN SOD 1 GM/NS 50ML 50 ML IV ONE; +DEXAMETHASONE SOD PHOS INJ 4 MG/ML VIAL ONE; +HYDROMORPHONE 1MG/1ML INJ ONE; +IOPAMIDOL 300MG/ML 50ML INFUS..BTL IV ONE; +KEFLEX500 MG PO; +LIDOCAINE HCL 2% LOCAL INJ 5 ML SDV VIAL INJ ONE; +MACROBID 100 M100 MG PO; +ONDANSETRON HCL INJ 2MG/ML 2ML 2 MG/ML VIAL ONE; +PROPOFOL IV EMULSION 10 MG/ML 20 ML VIAL ONE; +SEVOFLURANE INHAL SOLN 250 ML PEN BTL ONE
[2020-01-19 10:25] VITALS: BP 144/95
--- NOTE | 2020-01-19 14:35 | Diagnostic Imaging Report ---
OR Fluoroscopy: IMPRESSION: Fluoroscopy service provided in the OR. Interpretation not requested. Signed by: Ricky Vargas MD on 01/19/2020 2:31 PM
--- NOTE | 2020-01-19 19:51 | Operative Report ---
DATE OF PROCEDURE: 01/19/2020 SURGEON: Mil Trujillo MD SERVICE: Urology. PREOPERATIVE DIAGNOSES: 1. Recurrent bladder tumor. 2. Left hydronephrosis. 3. J-stent on the left side. 4. Microhematuria. 5. Urethral stricture. OPERATIONS PERFORMED: 1. Cystourethral dilation. 2. Right retrograde pyelograms under fluoroscopic control, not related to the contralateral side. 3. Removal of double-J stent from the left side. 4. Left retrograde pyelograms under fluoroscopic control. 5. Left ureteroscopy. 6. Placement of double-J stent, 7-Namibian 24 cm long to the left side. 7. Interpretation of x-ray. 8. Supervision of fluoroscopy, radiologist not present. 9. Transurethral resection of bladder tumor, less than 5 cm near the UO on the left side. SKULL SPLITTER: None. ANESTHESIA: General. CLINICAL INDICATION NOTE: This is a 64-year-old patient, who underwent in the past resection of tumor left ureteral orifice. He had hydronephrosis on the left side, has a J stent in place. The tumor resection specimens were sent in the past. The pathology did not demonstrate any muscle invasion. The patient was brought for reassessment area. The procedure was discussed with the patient. He is aware of the plan. This is the next step in management. Potential benefits and complication discussed and explained, accepted. DESCRIPTION OF PROCEDURE AND FINDINGS: After appropriate level of anesthesia was achieved, the patient was placed in lithotomy position, prepped and draped in sterile fashion. Urethra inspected meatus was noticed, dilated to 28-Namibian. The scope was then inserted. The bladder neck is patent. Bladder mucosa demonstrate double-J stent on the left side of the tumor above it and below it irregular bladder tissue. Other areas of the bladder are unremarkable. Open-end catheter was inserted to the right side and retrograde pyelogram demonstrating a normal upper collecting system and ureter. Following this, the left double-J stent was pulled out to the urethral meatus. Open-end catheter was inserted and retrograde pyelogram demonstrated a normal ureter with some dilation of the upper collecting system. Due to the proximity to the tumor, selected to reposition the double-J stent, 7-Namibian 24 cm long double-J stent was properly positioned. Proper position was verified by x-ray and endoscopy. Following this, the scope was removed, resectoscope was inserted and the suspicious area in the tumor were resected, any visible bleeding points were carefully coagulated. The dissection was also superficial and deep. Following this, no active bleeding is noticed. A 22-Namibian 30 mL 3-way Reid catheter was inserted and it did not connect to the radiation at the present time. The patient tolerated the procedure well. B and O suppository were placed. After the procedure, the patient was transferred to the recovery room. He will be followed. The patient had pending pathology, may be a candidate for radical cystectomy. MD DALLAS Melo/MODL /[id number]
== END | disposition home or self-care (01) ==
LOC: OR 06:38
PROVIDERS: ATTEND Urology
DX: C67.9 Malignant neoplasm of bladder, unspecified (principal); N13.30 Unspecified hydronephrosis; N35.911 Unspecified urethral stricture, male, meatal; Z46.6 Encounter for fitting and adjustment of urinary device; I10 Essential (primary) hypertension; Z01.810 Encounter for preprocedural cardiovascular examination; Z01.812 Encounter for preprocedural laboratory examination; Z11.59 Encounter for screening for other viral diseases
CPT/HCPCS: 36415; 52235; 52332; 52351; 71046; 74420; 85025; 87635; 88305; 93005; C1758 ×2; C1769; C2617; J0690; J1100; J1170; J2001; J2405; J2704; Q9967

== ENCOUNTER 2020-02-04 11:34 | Inpatient (IN) | payer MEDICARE, OTHER ==
[~2020-02-04] VITALS: Ht 325.1 cm; Wt 78.0 kg
[~2020-02-04 11:34] MED LIST changes: -B&O 60MG R/S 60 MG SUPP PR ONE; -CEFAZOLIN SOD 1 GM/NS 50ML 50 ML IV ONE; -DEXAMETHASONE SOD PHOS INJ 4 MG/ML VIAL ONE; -HYDROMORPHONE 1MG/1ML INJ ONE; -IOPAMIDOL 300MG/ML 50ML INFUS..BTL IV ONE; -LIDOCAINE HCL 2% LOCAL INJ 5 ML SDV VIAL INJ ONE; -ONDANSETRON HCL INJ 2MG/ML 2ML 2 MG/ML VIAL ONE; -PROPOFOL IV EMULSION 10 MG/ML 20 ML VIAL ONE; -SEVOFLURANE INHAL SOLN 250 ML PEN BTL ONE
--- OUTSIDE RECORDS SUMMARY | 2020-02-04 11:38 | XMS REPORT ---
Author Author [facility] t Organization [facility] Address [address] [facility]. [address] [place] [address] Phone Unavailable Care Team Providers Care Community Sports Coordinator Name Role Phone SABRA MONTEMAYOR MD PCP HAMPEL, NEHEMIA Attphys Unavailable Mansoor COONEY LAIASVHIN Attphys Unavailable WELDON, GERI ISAAK Attphys Unavailable Payers Payer Name Policy Type Policy Number Effective Date Expiration Date Lucila oahra [facility] [id number] [facility] [id number] [facility] Problems Condition Name Condition Details Condition Category Status Onset Date Resolution Date Last Treatment Date Treating Clinician Comments Source 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 Medications Ordered Medication Name Filled Medication Name Start Date Stop Da te Current Medication? Ordering Clinician Indication Dosage Frequency Signature (SIG) Comments Components Source Amlodipine Besylate 10 Mg Tablet Amlodipine Besylate 10 Mg Tablet Yes 10 As Needed for Hbp [facility] Cephalexin Monohydrate (Keflex) 500 Mg Capsule Cephale didi Monohydrate (Keflex) 500 Mg Capsule Yes 500 Every 12 Hours [facility] Nifedipine (Nifedipine Er) 60 Mg Tablet.er Nifedipine (Nifedipine Er) 60 Mg Tablet.er Yes 60 Daily [facility] Telmisartan (Micardis) 40 Mg Tab Telmisartan (Micardis) 40 Mg Tab Yes 80 Daily [facility] Procedures Procedure Date / Time Performed Performing Clinician Sour e CT of abdomen and pelvis without contrast 2019-11-12 00:00:00 LALO SCOTT [facility] CYSTOSCOPY AND TREATMENT 2019-11-08 [facility] 2019-11[facility]08 [facility] 2019-10-21 00:00:00 [facility] X-ray of chest, two views 2019-10-07 00:00:00 [facility] Encounters Start Date/Time End Date/Time Encounter Type Admission Type Attendi [facility] Care Department Encounter ID Source 2019-11-12 09:57:00 2019-11-15 18:06:00 Discharged Inpatient 1 LALO COONEY [facility] [id number] [facility] 2019-11-10 20:13:00 2019-11-10 23:18:00 Departed Emergency Room [facility] [id number] [facility] 2019-11-08 06:12:00 2019-11-08 06:12:00 Registered Surgical Day Car e 3 RISHABH TURNER [facility] [id number] [facility] 2019-10-07 11:21:00 2019-10-07 11:21:00 Registered Clinic 3 RISHABH TURNER [facility] [id number] [facility] Results Test Description Test Time Test Comments Results Result Comments Source RETROGRADE PYELOGRAM 2020-01-19 14:31:00 [place] [address] Patient Name: MOISÉS RUIZ MR #: [id number] : 1955 Age/Sex: 64/M Req #: [id number] Adm Physician: Ordered by: RISHABH TURNER MD Report #: [id number] Location: OR Room/Bed: Procedure: [id number] DX/RETROGRADE PYELOGRAM Exam Date: 01/19/20 Exam Time: 828 REPORT STATUS: Signed OR Fluoroscopy: IMPRESSION: Fluoroscopy service provided in the OR. Interpretation not requested. Signed by: Ricky Miles MD on 01/19/2020 2:31 PM Dictated By: RICKY MILES MD 1431 [place]or scribed By: PARRISH on 01/19/20 1431 COPY TO: RISHABH TURNER MD CHEST 2 VIEWS 2020-01-17 12:50:00 [place] [address] Patient Name: MOISÉS RUIZ MR #: [id number] : 1955 Age/Sex: 64/M Req #: [id number] Adm Physician: Ordered by: RISHABH TURNER MD Report #: [id number] Location: OR Room/Bed: Procedure: [id number] DX/CHEST 2 VIEWS Exam Date: 01/17/20 Exam Time: 1223 REPORT STATUS: Signed EXAM: CHEST 2 VIEWS DATE: 01/17/2020 12:23 PM INDICATION: Properly evaluation COMPARISON: 10/21/2019 FINDINGS: The trachea is midline. The lungs are symmetrically expanded without evidence for large focal consolidation, pneumothorax, or significant pleural effusion. The cardiomediastinal silhouette is stable in appearance. Degenerative changes again noted of the thoracic spine. No acute osseous abnormality is identified. The surrounding soft tissues are unremarkable. IMPRESSION: No acute cardiopulmonary process or significant interval change identified from 10/21/2019. Signed by: Dr. Andrew Pinto MD on 01/17/2020 12:50 PM Dictated By: ANDREW PINTO MD 1250 Transcribed By: PARRISH on 01/17/20 1250 COPY TO: RISHABH TURNER MD Triglycerides Level 2019-11-13 07:38:00 Test Item Triglycerides Level (test code = 2571-8) 66 0-149 [facility] Ogxvt5792-49-81 07:38:00* Test Item Value Reference Range Interpretation Comments Cholesterol Level (test code = 2093-3) 141 0-199 Less than 200 mg/dL Low Dthe907 - 239 mg/dL Borderline Pgqg787 m g/dl and greater High Risk [facility] CenterLDL Zjbnduluzas4392-13-41 07:38:00* Test Item Value Reference Range Interpretation Comments LDL Cholesterol (test code = 2089-1) 87 60-130 [facility] CenterHDL Iwmvyhtmerl1325-81-27 07:38:00* Test Item Value Reference Range Interpretation Comments HDL Cholesterol (test code = 2085-9) 41 40-60 [facility] CenterCholesterol/HDL Twbun4916-38-13 07:38:00 * Test Item Value Reference Range Interpretation Comments Cholesterol/HDL Ratio (test code = 9830-1) 3.4 3.9-4.7 [facility] CenterHemoglobin A1c Hntrscm8053-28-08 07:31:00 * Test Item Value Reference Range Interpretation Comments Hemoglobin A1c Percent (test code = Hemoglobin A1c Percent) 5.7 4.0-7.0 [facility] Ezxxb6661-86-70 05:50:00* Test Item Value Reference Range Interpretation Comments Sodium Level (test code = 2951-2) 140 136-145 [facility] CenterPotassium Gawus8133-64-86 05:50:00* Test Item Value Reference Range Interpretation Comments Potassium Level (test code = 2823-3) 3.5 3.5-5.1 [facility] CenterChloride Dbxkc1725-27-54 05:50:00* Test Item Value Reference Range Interpretation Comments Chloride Level (test code = 2075-0) 105 98-107 [facility] CenterCarbon Dioxide Otbbx4751-75-09 05:50:00* Test Item Value Reference Range Interpretation Comments Carbon Dioxide Level (test code = 2028-9) 28 22-29 [facility] CenterAnion Svf4097-30-71 05:50:00* Test Item Value Reference Range Interpretation Comments Anion Gap (test code = 36067-5) 10.5 8-16 [facility] CenterBlood Urea Zlcmkaxe6663-02-28 05:50:00* Test Item Value Reference Range Interpretation Comments Blood Urea Nitrogen (test code = 3094-0) 17 7-26 [facility] CenterCreatinine2020-02-23 05:50:00* Test Item Value Reference Range Interpretation Comments Creatinine (test code = 2160-0) 0.84 0.72-1.25 [facility] CenterBUN/Creatinine Ebjgd5121-37-21 05:50:00* Test Item Value Reference Range Interpretation Comments BUN/Creatinine Ratio (test code = 3097-3) 20 6-25 [facility] CenterEstimat Glomerular Filtration Rate 2019-11-13 05:50:00* Test Item Value Reference Range Interpretation Comments Estimat Glomerular Filtration Rate (test code = 139371745) > 60 >60 Ranges were taken from the National Kidney Disease Education Program and the [facility] literature.Reference ranges:60 or greater: Ovvcke46-56 ( for 3 consecutive months): Chronic kidney disease 15 or less: Kidney failureNorth [facility] Medical CenterGlucose Piyeg4491-42-05 05:50:00* Test Item Value Reference Range Interpretation Comments Glucose Level (test code = TKJ5370) 106 74-118 [facility] CenterCalcium Hqgfx7295-69-69 05:50:00* Test Item Value Reference Range Interpretation Comments Calcium Level (test code = 77447-6) 8.7 8.4-10.2 [facility] CenterTotal Lgojivqcx1920-68-12 05:50:00* Test Item Value Reference Range Interpretation Comments Total Bilirubin (test code = 1975-2) 0.7 0.2-1.2 [facility] CenterAspartate Amino Transf (AST/SGOT) 2019-11-13 05:50:00* Test Item Value Reference Range Interpretation Comments Aspartate Amino Transf (AST/SGOT) (test code = Aspartate Amino Transf (AST/SGOT)) 14 5-34 [facility] CenterAlanine Aminotransferase (ALT/SGPT) 2019-11-13 05:50:00* Test Item Value Reference Range Interpretation Comments Alanine Aminotransferase (ALT/SGPT) (test code = 1742-6) 23 0-55 [facility] CenterTotal Eusyojk0103-96-82 05:50:00* Test Item Value Reference Range Interpretation Comments Total Protein (test code = 2885-2) 5.9 6.5-8.1 [facility] CenterAlbumin2020-02-23 05:50:00* Test Item Value Reference Range Interpretation Comments Albumin (test code = 1751-7) 3.1 3.5-5.0 [facility] CenterGlobulin2020-02-23 05:50:00* Test Item Value Reference Range Interpretation Comments Globulin (test code = 06677-3) 2.8 2.3-3.5 [facility] CenterAlbumin/Globulin Lbjvv3955-13-74 05:50:00 * Test Item Value Reference Range Interpretation Comments Albumin/Globulin Ratio (test code = 1759-0) 1.1 0.8-2.0 [facility] CenterAlkaline Cawyvecdnrf2718-83-43 05:50:00* Test Item Value Reference Range Interpretation Comments Alkaline Phosphatase (test code = 6768-6) 72 40-150 [facility] CenterWhite Blood Iulch5446-00-97 05:26:00* Test Item Value Reference Range Interpretation Comments White Blood Count (test code = 6690-2) 8.36 4.8-10.8 [facility] CenterRed Blood Glyrx7089-70-31 05:26:00* Test Item Value Reference Range Interpretation Comments Red Blood Count (test code = 789-8) 4.77 4.3-5.7 [facility] CenterHemoglobin2020-02-23 05:26:00* Test Item Value Reference Range Interpretation Comments Hemoglobin (test code = 38518-8) 13.6 14.0-18.0 [facility] CenterHematocrit2020-02-23 05:26:00* Test Item Value Reference Range Interpretation Comments Hematocrit (test code = 4544-3) 41.1 38.2-49.6 [facility] CenterMean Corpuscular Kkjtcn0133-00-61 05:26:00* Test Item Value Reference Range Interpretation Comments Mean Corpuscular Volume (test code = 787-2) 86.2 81-99 [facility] CenterMean Corpuscular Uvlbcgruuh7592-79-57 05:26:00* Test Item Value Reference Range Interpretation Comments Mean Corpuscular Hemoglobin (test code = 785-6) 28.5 28-32 [facility] CenterMean Corpuscular Hemoglobin Concent 2019-11-13 05:26:00* Test Item Value Reference Range Interpretation Comments Mean Corpuscular Hemoglobin Concent (test code = 786-4) 33.1 31-35 [facility] CenterRed Cell Distribution Sjpuy8332-40-68 05:26:00* Test Item Value Reference Range Interpretation Comments Red Cell Distribution Width (test code = 22853-5) 12.7 11.7 -14.4 [facility] CenterPlatelet Kxzgf3274-58-96 05:26:00* Test Item Value Reference Range Interpretation Comments Platelet Count (test code = 777-3) 282 140-360 [facility] CenterNeutrophils (%) (Auto)2019-11-13 05:26:00 * Test Item Value Reference Range Interpretation Comments Neutrophils (%) (Auto) (test code = 21330-6) 66.8 38.7-80.0 [facility] CenterLymphocytes (%) (Auto)2019-11-13 05:26:00 * Test Item Value Reference Range Interpretation Comments Lymphocytes (%) (Auto) (test code = 736-9) 17.2 18.0-39.1 [facility] CenterMonocytes (%) (Auto)2019-11-13 05:26:00* Test Item Value Reference Range Interpretation Comments Monocytes (%) (Auto) (test code = 5905-5) 12.0 4.4-11.3 [facility] CenterEosinophils (%) (Auto)2019-11-13 05:26:00 * Test Item Value Reference Range Interpretation Comments Eosinophils (%) (Auto) (test code = 713-8) 3.1 0.0-6.0 [facility] CenterBasophils (%) (Auto)2019-11-13 05:26:00* Test Item Value Reference Range Interpretation Comments Basophils (%) (Auto) (test code = 706-2) 0.4 0.0-1.0 [facility] CenterIM GRANULOCYTES %2019-11-13 05:26:00* Test Item Value Reference Range Interpretation Comments IM GRANULOCYTES % (test code = IM GRANULOCYTES %) 0.5 0.0- 1.0 [facility] CenterNeutrophils # (Auto)2019-11-13 05:26:00* Test Item Value Reference Range Interpretation Comments Neutrophils # (Auto) (test code = 751-8) 5.6 2.1-6.9 [facility] CenterLymphocytes # (Auto)2019-11-13 05:26:00* Test Item Value Reference Range Interpretation Comments Lymphocytes # (Auto) (test code = 03602-7) 1.4 1.0-3.2 [facility] CenterMonocytes # (Auto)2019-11-13 05:26:00* Test Item Value Reference Range Interpretation Comments Monocytes # (Auto) (test code = 742-7) 1.0 0.2-0.8 [facility] CenterEosinophils # (Auto)2019-11-13 05:26:00* Test Item Value Reference Range Interpretation Comments Eosinophils # (Auto) (test code = 711-2) 0.3 0.0-0.4 [facility] CenterBasophils # (Auto)2019-11-13 05:26:00* Test Item Value Reference Range Interpretation Comments Basophils # (Auto) (test code = 704-7) 0.0 0.0-0.1 [facility] CenterAbsolute Immature Granulocyte (auto 2019-11-13 05:26:00* Test Item Value Reference Range Interpretation Comments Absolute Immature Granulocyte (auto (mandeep t code = Absolute Immature Granulocyte (auto) 0.04 0-0.1 [facility] CenterCT ABDOMEN/PELVIS FJ4164-73-14 09:08:00 [place] [address] Patient Name: MOISÉS RUIZ MR #: [id number] : 1955 Age/Sex: 64/M Req #: [id number] Adm Physician: Ordered by: LALO COONEY MD Report #: [id number] Location: ER Room/Bed: Procedure: [id number] CT/ CT ABDOMEN/PELVIS WO Exam Date: 11/12/19 Exam Time: 841 REPORT STATUS: Signed EXAM: CT Abdomen and Pelvis WITHOUT contrast INDICATION: Stone Protocol, BLAD TUMOR RESECTED 11/08, LEFT STENT, PAIN [id number] Y COMPARIS ON: None. TECHNIQUE: Abdomen and pelvis were scanned utilizing a multidetector helical scanner from the lung base to the pubic symphysis without administrat ion of IV contrast. Absence of intravenous contrast decreases sensitivity for detection of focal lesions and vascular pathology. Coronal and sagittal reform ations were obtained. Routine protocol was performed. IV CONTRAST: Non e ORAL CONTRAST: Water COMPLICATIONS: None RADIATIO N DOSE: Total DLP: 319.26 mGy-cm Estimated effective dose: (DLP x 0.015 x size factor) mSv CTDIvol has been reviewed. It is below the limit s set by the Radiation Protocol Committee (RPC). FINDINGS: LINES and TUBES: There is a left nephroureteral stent placed. LOWER THORAX: There is bibasilar atelectasis. HEPATOBILIARY: No biliary ductal dilation. GALLBLADDER: No radio-opaque stones or sludge. No wall thickening. SPL EEN: No splenomegaly. PANCREAS: No focal masses or ductal dilatation. ADRENALS: No adrenal nodules KIDNEYS/URETERS: No hydronephrosis. Th ere is a 2.2 complex cyst arising from upper pole of the right kidney. There i s a 3.1 cm exophytic lesion arising from upper pole left kidney (series 3, zane ge 44). Both of the aforementioned lesions are incompletely characterized exam on this noncontrast exam. No stones.There is a left nephroureteral stent in place. GI TRACT: No abnormal distention, wall thickening, or evidence of alice wel obstruction. Appendix is normal. PELVIC ORGANS/BLADDER: The herminia dder is thick walled surrounding a Reid catheter likely due to underdistentio n. LYMPH NODES: No lymphadenopathy. VESSELS: Unremarkable. PERITO NEUM / RETROPERITONEUM: No free air or fluid. BONES: There are degenerative changes in the lumbar spine. SOFT TISSUES: Unremarkable. IMPRESSION: Left nephroureteral stent in place. No nephroureterolithiasis or hydroureteronephrosis. Bilateral renal lesions as described are incomplet jose characterized on this noncontrast exam. Recommend follow-up nonemergent CT multiphase renal protocol. Signed by: Saul Triplett MD on 11/12/2019 9 :17 AM Dictated By: SAUL TRIPLETT MD 6 Transcribed By: PARRISH on 11/12/19916 COPY TO: LALO COONEY MD Urine ESR9723-37-93 08:38:00* Test Item Value Reference Range Interpretation Comments Urine WBC (test code = 5821-4) 11-20 0-5 [facility] CenterU[facility] UWE5360-08-08 08:38:00* Test Item Value Reference Range Interpretation Comments Urine RBC (test code = 47455-7) >50 0-5 [facility] CenterU[facility] Glubrftr8224-47-83 08:38:00* Test Item Value Reference Range Interpretation Comments Urine Bacteria (test code = 19591-4) MODERATE NONE [facility] CenterU[facility] Epithelial Nqmmc3630-15-54 08:38:00 * Test Item Value Reference Range Interpretation Comments Urine Epithelial Cells (test code = 34353-5) FEW NONE [facility] CenterU[facility] Vopul1889-20-31 08:38:00* Test Item Value Reference Range Interpretation Comments Urine Mucus (test code = 8247-9) FEW RARE [facility] CenterU[facility] Kcjfj2286-65-23 08:24:00* Test Item Value Reference Range Interpretation Comments Urine Color (test code = 5778-6) TANIYA YELLOW [facility] CenterU[facility] Ofxfhde3692-76-54 08:24:00* Test Item Value Reference Range Interpretation Comments Urine Clarity (test code = 87370-7) CLOUDY CLEAR [facility] CenterU[facility] Specific Qwcnrwr4797-98-56 08:24:00 * Test Item Value Reference Range Interpretation Comments Urine Specific [place] (test code = 5811-5) >=1.030 1.010-1.02 5 [facility] CenterU[facility] lS5935-07-76 08:24:00* Test Item Value Reference Range Interpretation Comments Urine pH (test code = 18065-2) 6 5-7 [facility] Leukocyte Svxgvjfh8239-71-14 08:24:00* Test Item Value Reference Range Interpretation Comments Urine Leukocyte Esterase (test code = 5799-2) TRACE NEGATIVE [facility] CenterU[facility] Uyezqlh8893-23-00 08:24:00* Test Item Value Reference Range Interpretation Comments Urine Nitrite (test code = 23231-3) POSITIVE NEGATIVE [facility] CenterU[facility] Kvtnrgq9924-54-76 08:24:00* Test Item Value Reference Range Interpretation Comments Urine Protein (test code = 5804-0) 3+ NEGATIVE [facility] CenterU[facility] Glucose (UA)2019-11-12 08:24:00* Test Item Value Reference Range Interpretation Comments Urine Glucose (UA) (test code = 2349-9) NEGATIVE NEGATIVE [facility] CenterU[facility] Epjhhev3266-13-78 08:24:00* Test Item Value Reference Range Interpretation Comments Urine Ketones (test code = 12206-8) TRACE NEGATIVE [facility] Jznnqkhjzuua7133-45-07 08:24:00* Test Item Value Reference Range Interpretation Comments Urine Urobilinogen (test code = 21514-7) 1 0.2-1 [facility] Gwkoavyza8302-53-76 08:24:00* Test Item Value Reference Range Interpretation Comments Urine Bilirubin (test code = 1978-6) MODERATE NEGATIVE [facility] CenterU[facility] Kppuq1617-12-70 08:24:00* Test Item Value Reference Range Interpretation Comments Urine Blood (test code = 57553-3) 3+ NEGATIVE [facility] CenterBedside Gdlwpxn8498-24-68 14:16:00* Test Item Value Reference Range Interpretation Comments Bedside Glucose (test code = 14277-0) 149 70-120 Meter ID: [id number] [facility] Medical CenterCHEST 2 VIEWS 2019-10-21 12:33:00 [facility] [address] [place] [address] Patient Name: MOISÉS RUIZ MR #: [id number] : 1955 Age/Sex: 64/M Req #: [id number] Adm Physician: Ordered by: RISHABH TURNER MD Report #: [id number] Location: OR Room/Bed: Procedure: [id number] DX /CHEST 2 VIEWS Exam Date: 10/21/19 Exam Time: 1210 REPORT STATUS: Signed Chest, 2 vi ews, 10/21/2019. History: Preop, bladder surgery. Comparison: N one available. Findings: The cardiomediastinal silhouette and pulmonary vas culature are within normal limits. The lungs are clear without evidence of con solidation or pleural effusion. Degenerative changes are noted throughout the thoracic spine. There are no acute osseous or soft tissue abnormalities. Impression: No acute cardiopulmonary abnormality. Signed by: King house on 10/21/2019 12:33 PM Dictated By: KING ASHLEY MD Electronically S igned By: KING ASHLEY MD on 10/21/19 1233 Transcribed By: PARRISH on 10/21/19 1233 COPY TO: RISHABH TURNER MD CHEST 2 VYRRC4691-68-85 12:48:00 [place] [address] Patient Name: MOISÉS RUIZ MR #: [id number] : [birth year] Age/Sex: 64/M Req #: [id number] Adm Physician: Ordered by: RISHABH TURNER MD Report #: [id number] Location: RAD Room/Bed: Procedure: [id number] DX /CHEST 2 VIEWS Exam Date: 10/07/19 Exam Time: 1149 REPORT STATUS: Signed EXAMINATION: CHEST 2 VIEWS INDICATION: Hematuria COMPARISON: None FINDINGS: LINES/TUBES:None LUNGS:The lungs are well-inflated. No focal consolidation or pulmonary edema. PLEURA:No pleural effusion or pneumothor ax. MEDIASTINUM:The cardiomediastinal silhouette appears normal in size and shape. Atherosclerotic calcifications of the thoracic aorta. BONES/SOFT TISSUES:No acute osseous injury. Mild degenerative changes of the visualized s pine. ABDOMEN:No free air under the diaphragm. IMPRESSION: No fo ayah pneumonia or pulmonary edema. Signed by: Ghada Shultz MD on 10/07/2019 12 :49 PM Dictated By: GHADA SHULTZ MD 48 Transcribed By: PARRISH on 10/07/191248 COPY TO: RISHABH GIRON MD CT, [id number] 14:15:00Reason for exam:-> Abdominal painWhat is the patient's sedation requirement?->No SedationFINAL REPORT ABDOMINAL AND PELVIS CT DATED 09/12/2019 CLINICAL INFORMATION: Abdominal painabdominal pain, hematuria TECHNIQUE: Axial images of the abdomen and pelvis were obtained from diaphragm to the pubic symphysis with intravenous contrast. This exam was performed according to our [facility] ental dose-optimization program, which includes automated exposure control, adju stment of the mA and/or kV according to patient size and/or use of interactive r econstruction technique. COMMENT: Liver and spleen are normal in size without fo ayah abnormality. There is diffusely decreased attenuation liver consistent with a fatty hepatic infiltrate. Gallbladder is contracted. No gallstone or biliary d ilatation is noted. Pancreas and adrenals are unremarkable. Both kidneys are normal in size and functioning. No hydronephrosis, hydroureter, urolithiasis is seen. A 2 x 2.1 cm cyst is seen in the upper pole right kidney. 3 additional sma ll subcentimeter cysts are seen in the right kidney measuring up to 8mm in size. Multiple, more than 5, subcentimeter cysts are seen in the left kidney. A 7 mm partially enhancing hypodense lesion is seen in the upper pole left kidney. The urinary bladder is contracted. A 3.2 x 3.8 cm enhancing mass is seen in the maruicio on of the left base of the urinary bladder. Prostate is prominent measuring 3.7 x 4.6 x 4.5 cm. Diverticular disease is seen in the large bowel without divertic ulitis. The small bowel and appendix are normal in caliber. IMPRESSION: 1. Mass lesion in the region of the left base of the urinary bladder suspicious for janell plasm. Recommend further evaluation with cystoscopy.2. Bilateral renal cysts.3. Partially enhancing subcentimeter hypodense lesion in the upper pole left kidney . Recommend further evaluation with repeat CT in 6 months.4. Diverticulosis with out diverticulitis.5. Fatty liver. Signed: Sabra [place] Verified Date/Ti me: 09/12/2019 14:15:09 Reading Location: [facility] C013Y CT Body Reading Room ALYSIS W/ [id number] 13:34:00* Test Item Value Reference Range Interpretation Comments COLOR (BEAKER) (test code = 470) Yellow CLARITY (BEAKER) (test code = 469) Clear SPECIFIC GRAVITY UA (BEAKER) (test code = 468) 1.015 1.001-1 .035 PH UA (BEAKER) (test code = 467) 6.5 5.0-8.0 PROTEIN UA (BEAKER) (test code = 464) 30 mg/dL Negative A GLUCOSE UA (BEAKER) (test code = 365) Negative Negative KETONES UA (BEAKER) (test code = 371) Negative Negative BILIRUBIN UA (BEAKER) (test code = 462) Negative Negative BLOOD UA (BEAKER) (test code = 461) Large Negative A NITRITE UA (BEAKER) (test code = 465) Negative Negative LEUKOCYTE ESTERASE UA (BEAKER) (test code = 466) Trace Negat javi A UROBILINOGEN UA (BEAKER) (test code = 463) 0.2 mg/dL 0.2-1.0 RBC UA (BEAKER) (test code = 519) 1468 /HPF WBC UA (BEAKER) (test code = 520) 27 /HPF MUCUS (BEAKER) (test code = 1574) Few SOURCE(BEAKER) (test code = 2795) HEPATIC FUNCTION [id number] 12:09:00* Test Item Value Reference Range Interpretation Comments TOTAL PROTEIN (BEAKER) (test code = 770) 7.0 gm/dL 6.0-8.3 ALBUMIN (BEAKER) (test code = 1145) 4.2 g/dL 3.5-5.0 BILIRUBIN TOTAL (BEAKER) (test code = 377) 0.6 mg/dL 0.2-1.2 BILIRUBIN DIRECT (BEAKER) (test code = 706) 0.2 mg/dL 0.1-0.5 ALKALINE PHOSPHATASE (BEAKER) (test code = 346) 85 U/L 40-150 AST (SGOT) (BEAKER) (test code = 353) 18 U/L 5-34 ALT (SGPT) (BEAKER) (test code = 347) 23 U/L 6-55 BASIC METABOLIC [id number] 12:09:00* Test Item Value Reference Range Interpretation Comments SODIUM (BEAKER) (test code = 381) 140 meq/L 136-145 POTASSIUM (BEAKER) (test code = 379) 3.8 meq/L 3.5-5.1 CHLORIDE (BEAKER) (test code = 382) 106 meq/L 98-107 CO2 (BEAKER) (test code = 355) 26 meq/L 22-29 BLOOD UREA NITROGEN (BEAKER) (test code = 354) 15 mg/dL 7-21 CREATININE (BEAKER) (test code = 358) 0.88 mg/dL 0.57-1.25 GLUCOSE RANDOM (BEAKER) (test code = 652) 105 mg/dL 70-105 CALCIUM (BEAKER) (test code = 697) 9.1 mg/dL 8.4-10.2 EGFR (BEAKER) (test code = 1092) INSUFFICIENT CLINICAL DATA TO CALCULATE ESTIMATED GFR. PT/[id number] 12:03:00* Test Item Value Reference Range Interpretation Comments PROTIME (BEAKER) (test code = 759) 14.0 seconds 11.9-14.2 INR (BEAKER) (test code = 370) 1.1 <=5.9 PARTIAL THROMBOPLASTIN TIME (BEAKER) (test code = 760) 31.8 seconds 22.5-36.0 Effective 02/16/2019: PT Reference Range ChangeNew: 11.9-14.2 Previous: 11.7-14. 7RECOMMENDED COUMADIN/WARFARIN INR THERAPY RANGESSTANDARD DOSE: 2.0-3.0 Include s: PROPHYLAXIS for venous thrombosis, systemic embolization; TREATMENT for venou s thrombosis and/or pulmonary embolus.HIGH RISK: Target INR is 2.5-3.5 for patie nts wiht mechanical heart valves.CBC W/PLT COUNT & AUTO [id number] 11:55:00* Test Item Value Reference Range Interpretation Comments WHITE BLOOD CELL COUNT (BEAKER) (test code = 775) 5.1 K/ L 3.5- 10.5 RED BLOOD CELL COUNT (BEAKER) (test code = 761) 5.56 M/ L 4.63-6 .08 HEMOGLOBIN (BEAKER) (test code = 410) 15.9 GM/DL 13.7-17.5 HEMATOCRIT (BEAKER) (test code = 411) 47.3 % 40.1-51.0 MEAN CORPUSCULAR VOLUME (BEAKER) (test code = 753) 85.1 fL 79. 0-92.2 MEAN CORPUSCULAR HEMOGLOBIN (BEAKER) (test code = 751) 28.6 pg 25.7-32.2 MEAN CORPUSCULAR HEMOGLOBIN CONC (BEAKER) (test code = 752) 33.6 GM/DL 32.3-36.5 RED CELL DISTRIBUTION WIDTH (BEAKER) (test code = 412) 12.8 % 11.6-14.4 PLATELET COUNT (BEAKER) (test code = 756) 291 K/CU MM 150-450 MEAN PLATELET VOLUME (BEAKER) (test code = 754) 9.0 fL 9.4-12 .4 L NUCLEATED RED BLOOD CELLS (BEAKER) (test code = 413) 0 /100 WBC 0 -0 NEUTROPHILS RELATIVE PERCENT (BEAKER) (test code = 429) 51 % LYMPHOCYTES RELATIVE PERCENT (BEAKER) (test code = 430) 36 % MONOCYTES RELATIVE PERCENT (BEAKER) (test code = 431) 10 % EOSINOPHILS RELATIVE PERCENT (BEAKER) (test code = 432) 2 % BASOPHILS RELATIVE PERCENT (BEAKER) (test code = 437) 1 % NEUTROPHILS ABSOLUTE COUNT (BEAKER) (test code = 670) 2.58 K/ L 1.78-5.38 LYMPHOCYTES ABSOLUTE COUNT (BEAKER) (test code = 414) 1.83 K/ L 1.32-3.57 MONOCYTES ABSOLUTE COUNT (BEAKER) (test code = 415) 0.53 K/ L 0. 30-0.82 EOSINOPHILS ABSOLUTE COUNT (BEAKER) (test code = 416) 0.12 K/ L 0.04-0.54 BASOPHILS ABSOLUTE COUNT (BEAKER) (test code = 417) 0.04 K/ L 0. 01-0.08 IMMATURE GRANULOCYTES-RELATIVE PERCENT (BEAKER) (test code = 2801) 0 % 0-1
--- OUTSIDE RECORDS SUMMARY | 2020-02-04 11:38 | XMS REPORT | Clinical Summary ---
Author Author LEROY [facility] Organization [facility] Address Unknown Phone Unavailable Care Team Providers Care Supervisor Wrapping Room Name Role Phone Sabra Lawrence Marcos PCP Allergies No Known Allergies Medications End Date Status Medication Sig Dispensed Refills Start Date Active telmisartan (MICARDIS) 80 Take 80 mg by 0 MG tablet mouth daily. Active hydrALAZINE (APRESOLINE) Take 50 mg by 0 50 MG tablet mouth nightly. Active NIFEdipine (PROCARDIA-XL) Take 60 mg by 0 60 MG (OSM) 24 hr tablet mouth daily. Active Problems Not on file Encounters Care Team Description Date Type Specialty Melquiades Aguilera MD Hematuria, gross (Primary Dx); Bladder mass 09/12/2019 Emergency Emergency Medicine 09/12/2019 Travel after 02/03/2019 Social History Date Tobacco Use Types Packs/Day Years Used Never Smoker Smokeless Tobacco: Never Used Alcohol Use Drinks/Week oz/Week Comments Yes socially Alcohol Habits Answer Date Recorded How often do you have a drink containing alcohol? Never 09/12/2019 How many drinks containing alcohol do you have on No t asked a typical day when you are drinking? How often do you have six or more drinks on one Not asked occasion? Sex Assigned at Date Recorded Not on file Industry Job Start Date Occupation Not on file Not on file Not on file Travel End Travel History Travel Start No recent travel history available. Last Filed Vital Signs Time Taken Vital Sign Reading 09/12/2019 2:45 PM LABOR OPERATOR Blood Pressure 155/121 09/12/2019 2:45 PM LABOR OPERATOR Pulse 59 09/12/2019 10:56 AM LABOR OPERATOR Temperature 36.5 C (97.7 F) 09/12/2019 2:45 PM LABOR OPERATOR Respiratory Rate 18 09/12/2019 2:45 PM LABOR OPERATOR Oxygen Saturation 96% - Inhaled Oxygen - Concentration 09/12/2019 10:56 AM LABOR OPERATOR Weight 79.4 kg (175 lb) 09/12/2019 10:56 AM LABOR OPERATOR Height 170.2 cm (5' 7") 09/12/2019 10:56 AM LABOR OPERATOR Body Mass Index 27.41 Plan of Treatment Not on file Procedures Comments Procedure Name Priority Date/Time Associated Diag nosis URINALYSIS W/ MICROSCOPIC STAT 09/12/2019 1:[address] ABDOMEN/PELVIS WITH IV STAT 09/12/2019 CONTRAST 1:08 PM LABOR OPERATOR CBC W/PLT COUNT & AUTO STAT 09/12/2019 DIFFERENTIAL 11:37 AM LABOR OPERATOR PT/APTT STAT 09/12/2019 11:37 AM LABOR OPERATOR HEPATIC FUNCTION PANEL STAT 09/12/2019 11:37 AM LABOR OPERATOR CBC W/PLT COUNT & AUTO STAT 09/12/2019 DIFFERENTIAL 11:37 AM LABOR OPERATOR BASIC METABOLIC PANEL (7) STAT 09/12/2019 11:37 AM LABOR OPERATOR after 02/03/2019 Results * Urinalysis w/Microscopic (09/12/2019 1:10 PM LABOR OPERATOR) Color, UA Yellow [facility] Clarity, UA Clear [facility] Specific [place], UA 1.015 1.001 - 1.035 [facility] pH, UA 6.5 5.0 - 8.0 [facility] Protein, UA 30 mg/dL (A) Negative [facility] Glucose, UA Negative Negative [facility] Ketones, UA Negative Negative [facility] Bilirubin, UA Negative Negative [facility] Blood, UA Large (A) Negative [facility] Nitrite, UA Negative Negative [facility] Leukocytes, UA Trace (A) Negative [facility] Urobilinogen, UA 0.2 0.2 - 1.0 mg/dL [facility] RBC, UA 1,468 /HPF [facility] WBC, UA 27 /HPF [facility] Mucus Few [facility] Specimen Source [facility] Specimen Urine Performing Organization Address City/State/Zipcode Ph one Number [facility] [address] [place], [place] [address] * CT abdomen/pelvis with IV contrast (09/12/2019 1:08 PM LABOR OPERATOR) Specimen Narrative Performed At FINAL REPORT [employer] ABDOMINAL AND PELVIS CT DATED 9 CLINICAL INFORMATION:Abdominal pain abdominal pain, hematuria TECHNIQUE:Axial images of the abdom en and pelvis were obtained from diaphragm to the pubic symphysis with i ntravenous contrast. This exam was performed according to [facility] departmental dose-optimization program, which includ es automated exposure control, adjustment of the mA and/or kV accordin g to patient size and/or use of interactive reconstruction technique . COMMENT: Liver and spleen are normal in size without focal abnormality. There is diffusely decreas ed attenuation liver consistent with a fatty hepatic infiltr ate. Gallbladder is contracted. No gallstone or biliary dil atation is noted. Pancreas and adrenals are unremarkable. Both kidneys are normal in size and fun ctioning. No hydronephrosis, hydroureter, urolithiasis is seen. A 2 x 2.1 cm cyst is seen in the upper pole right kidney. [address] subcentimeter cysts are seen in the right kidney measuring up t o 8mm in size. Multiple, more than 5, subcentimeter cysts are seen in the left kidney. A 7 mm partially enhancing hypodense lesion is seen in the upper pole left kidney. The urinary bladder is contracted. A 3. 2 x 3.8 cm enhancing mass is seen in the region of the left base of the urinary bladder. Prostate is prominent measuring 3.7 x 4 .6 x 4.5 cm. Diverticular disease is seen in the lar ge bowel without diverticulitis. The small bowel and dusty endix are normal in caliber. IMPRESSION: 1. Mass lesion in the region of the lef t base of the urinary bladder suspicious for neoplasm. Recommend furt her evaluation with cystoscopy. 2. Bilateral renal cysts. 3. Partially enhancing subcentimeter hy podense lesion in the upper pole left kidney. Recommend further akin luation with repeat CT in 6 months. 4. Diverticulosis without diverticuliti s. 5. Fatty liver. Signed: Sabra Parikh MD Report Verified Date/Time: 9 14:15:09 Reading Location: [facility] C013Y CT Body Reading Room Procedure Note Interface, External Ris In - 09/12/2019 2:17 PM LABOR OPERATOR FINAL REPORT ABDOMINAL AND PELVIS CT DATED 09/12/2019 CLINICAL INFORMATION: Abdominal pain abdominal pain, hematuria TECHNIQUE: Axial images of the [...] suspicious for neoplasm. Recommend further evaluation with cystoscopy. 2. Bilateral renal cysts. 3. Partially enhancing subcentimeter hyp odense lesion in the upper pole left kidney. Recommend further evaluation with repeat CT in 6 months. 4. Diverticulosis without diverticulitis . 5. Fatty liver. Signed: Sabra Parikh MD Report Verified Date/Time: 09/12/2019 14:15:09 Reading Location: [facility] B1 C013Y CT Body Reading Room Performing Organization Address [facility] Ph one Number GE RIS * PT/aPTT (09/12/2019 11:37 AM LABOR OPERATOR) Protime 14.0 11.9 - 14.2 seconds [facility] INR 1.1 <=5.9 [facility] PTT 31.8 22.5 - 36.0 seconds [facility] Specimen Blood Narrative Performed At Effective 02/16/2019: PT Reference Range Change [facility] New: 11.9-14.2Previous: 11.7-14.7 [facility] MEDICAL CE NTER RECOMMENDED COUMADIN/WARFARIN INR THERA PY RANGES STANDARD DOSE: 2.0-3.0Includes: PRO PHYLAXIS for venous thrombosis, systemic embolization; TREATMENT for venous thro mbosis and/or pulmonary embolus. HIGH RISK: Target INR is 2.5-3.5 for pa tients wiht mechanical heart valves. Performing Organization Address City/[facility] Ph one Number [address] [address] MED[facility] CENTER * CBC with platelet count + automated diff (09/12/2019 11:37 AM LABOR OPERATOR) WBC 5.1 3.5 - 10.5 K/L [facility] RBC 5.56 4.63 - 6.08 M/L [facility] Hemoglobin 15.9 13.7 - 17.5 GM/DL [facility] Hematocrit 47.3 40.1 - 51.0 % [facility] MCV 85.1 79.0 - 92.2 fL [facility] MCH 28.6 25.7 - 32.2 pg [facility] MCHC 33.6 32.3 - 36.5 GM/DL [facility] RDW 12.8 11.6 - 14.4 % [facility] Platelets 291 150 - 450 K/CU MM [facility] MPV 9.0 (L) 9.4 - 12.4 fL [facility] nRBC 0 0 - 0 /100 WBC [facility] % Neutros 51 % [facility] % Lymphs 36 % [facility] % Monos 10 % [facility] % Eos 2 % [facility] % Baso 1 % [facility] # Neutros 2.58 1.78 - 5.38 K/L [facility] # Lymphs 1.83 1.32 - 3.57 K/L [facility] # Monos 0.53 0.30 - 0.82 K/L [facility] # Eos 0.12 0.04 - 0.54 K/L [facility] # Baso 0.04 0.01 - 0.08 K/L [facility] Immature 0 0 - 1 % [facility] Granulocytes-Relative [facility] Specimen Blood Performing Organization Address City/State/Zipcode Ph one Number [facility] [address] [address] [facility] * Hepatic function panel (09/12/2019 11:37 AM LABOR OPERATOR) Protein, Total 7.0 6.0 - 8.3 gm/dL [facility] Albumin 4.2 3.5 - 5.0 g/dL [facility] Total Bilirubin 0.6 0.2 - 1.2 mg/dL [facility] Bilirubin, Direct 0.2 0.1 - 0.5 mg/dL [facility] Alkaline Phosphatase 85 40 - 150 U/L [facility] AST 18 5 - 34 U/L [facility] ALT 23 6 - 55 U/L [facility] Specimen Blood Performing Organization Address [facility] one Number [phone] [place] [address] * Basic Metabolic Panel (09/12/2019 11:37 AM LABOR OPERATOR) Sodium 140 136 - 145 meq/L [facility] Potassium 3.8 3.5 - 5.1 meq/L [facility] Chloride 106 98 - 107 meq/L [facility] CO2 26 22 - 29 meq/L [facility] BUN 15 7 - 21 mg/dL [facility] Creatinine 0.88 0.57 - 1.25 mg/dL [facility] Glucose 105 70 - 105 mg/dL [facility] Calcium 9.1 8.4 - 10.2 mg/dL [facility] EGFR Comment: INSUFFICIENT CLINICAL [facility] DATA TO CALCULATE ESTIMATED [facility] GFR. Specimen Blood Performing Organization Address [facility] Ph one Number [place] [phone] [place], [place] [address] [facility] after 02/03/2019 Insurance Payer Benefit Subscriber ID Type Phone Address Plan / Group [facility] Contracted ALL [phone]
[2020-02-04 12:23] LABS: CLARITY,URINE SL CLOUDY (CLEAR); COLOR,URINE YELLOW (YELLOW)
[2020-02-04 12:24] LABS: BILIRUBIN,URINE SMALL (NEGATIVE); KETONES,URINE 2+ (NEGATIVE); LEUKOCYTE ESTERASE ,URINE SMALL (NEGATIVE); NITRITE,URINE NEGATIVE (NEGATIVE); PROTEIN,URINE DIPSTICK 2+ (NEGATIVE); URINE UROBILINOGEN 0.2 mg/dL (0.2 - 1)
[2020-02-04 12:36] LABS: BASOPHILS % 0.3 % (0.0-1.0); EOSINOPHILS # (AUTO) 0.1 (0.0-0.4); EOSINOPHILS % 0.7 % (0.0-6.0); HEMATOCRIT 41.2 % (38.2-49.6); HEMOGLOBIN 13.8 g/dL (14.0-18.0); LYMPHOCYTES # (AUTO) 1.4 (1.0-3.2); LYMPHOCYTES % 12.8 % (18.0-39.1); MEAN CORPUSCULAR HEMOGLOBIN 28.3 pg (28-32); MEAN CORPUSCULAR HGB CONC 33.5 g/dL (31-35); MEAN CORPUSCULAR VOLUME 84.4 fL (81-99); MONOCYTES # (AUTO) 1.1 (0.2-0.8); MONOCYTES % 10.3 % (4.4-11.3); NEUTROPHILS # (AUTO) 8.1 (2.1-6.9); NEUTROPHILS % 75.5 % (38.7-80.0); PLATELET COUNT 274 x10e3/uL (140-360); RED BLOOD COUNT 4.88 x10e6/uL (4.3-5.7); RED CELL DISTRIBUTION WIDTH 13.2 % (11.7-14.4)
[2020-02-04 12:38] LABS: BACTERIA,URINE RARE /HPF; RBC,URINE >50 /HPF (0-5); WBC,URINE (MAN) >50 /HPF (0-5)
[2020-02-04 12:39] LABS: EPITHELIAL CELLS,URINE FEW /LPF
[2020-02-04 12:51] LABS: ALANINE AMINOTRANSFERASE 16 IU/L (0-55); ALBUMIN 3.4 g/dL (3.5-5.0); ALBUMIN/GLOBULIN RATIO 0.9 (0.8-2.0); ALKALINE PHOSPHATASE 78 IU/L (40-150); ANION GAP 14.6 mmol/L (8-16); BLOOD UREA NITROGEN 15 mg/dL (7-26); BUN/CREATININE RATIO 18 (6-25); CALCIUM 9.5 mg/dL (8.4-10.2); CARBON DIOXIDE 23 mmol/L (22-29); CHLORIDE 104 mmol/L (98-107); CREATINE KINASE 35 IU/L (30-200); CREATININE, SERUM 0.85 mg/dL (0.72-1.25); EST GLOMERULAR FILTRATION RATE > 60 ML/MIN (60-); GLUCOSE 102 mg/dL (74-118); POTASSIUM 3.6 mmol/L (3.5-5.1); SODIUM 138 mmol/L (136-145)
[2020-02-04] MEDS ORDERED: CEFEPIME 1GM/NS 0.9% 50 ML 50 ML IV STA (13:19)
--- NOTE | 2020-02-04 13:48 | Emergency Department Note ---
History of Present Illnes History of Present Illness Chief Complaint: Abdominal Complaints History of Present Illness This is a 64 year old male with bladder CA arrived to the ED with complaints of hematuria after cathere removed. Pt sent to ED at request of Dr. Trujillo. Historian: Patient Arrival Mode: Car Tool Setter Required: No Onset (how long ago): hour(s) Radiation: non-radiation Severity: moderate Onset quality: gradual Duration (how long): hour(s) Timing of current episode: constant Progression: worsening Relieving factors: none Past Medical/Family History Physician Review I have reviewed the patient's past medical and family history. Any updates have been documented here. Past Medical History Recent Fever: No Clinical Suspicion of Infectio: No New/Unexplained Change in Ment: No Past Medical History: Hypertension Other Medical History: BLADDER CA BORDERLINE DIABETIC Other Surgery: TUMOR REMOVAL BLADDER 10/2019 KIDNEY, LEFT STENT Social History Smoking Cessation: Never Smoker Counseling Performed: No Alcohol Use: None Any Illegal Drug Use: No TB Exposure/Symptoms: No Physically hurt or threatened: No Other Last Tetanus: UTD Any Pre-Existing Lines (PICC,: No Is patient up to date on immun: Yes Last Flu: UTD Last Pneumovax: UTD Review of Systems Review of Systems Constitutional: no symptoms EENTM: no symptoms Cardiovascular: no symptoms Respiratory: no symptoms Gastrointestinal: no symptoms Genitourinary: no symptoms, dysuria, frequency, hematuria Musculoskeletal: no symptoms Neurological: no symptoms Psychological: no symptoms Endocrine: no symptoms Hematological/Lymphatic: no symptoms Review of other systems All other systems reviewed and negative. Physical Exam Related Data Allergies: Coded Allergies: No Known Allergies (Unverified , 10/21/19) Triage Vital Signs Vital Signs Date Time Temp Pulse Resp B/P (MAP) Pulse Ox O2 Delivery O2 Flow Rate FiO2 02/04/20 11:47 99.1 85 18 129/88 98 Vital signs reviewed: Yes Physical Exam CONSTITUTIONAL Constitutional: well-developed, well-nourished HENT HENT: normocephalic, atraumatic, oropharynx clear/moist, nose normal HENT L/R: left ext ear normal, right ext ear normal EYES Eyes: PERRL, conjunctivae normal NECK Neck: ROM normal PULMONARY Pulmonary: effort normal, breath sounds normal CARDIOVASCULAR Cardiovascular: regular rhythm, heart sounds normal, capillary refill normal, normal rate GASTROINTESTINAL Abdominal: soft, nontender, bowel sounds normal GENITOURINARY Genitourinary: exam deferred SKIN Skin: warm, dry MUSCULOSKELETAL Musculoskeletal: ROM normal NEUROLOGICAL Neurological: alert, oriented x 3, no gross motor or sensory deficits PSYCHOLOGICAL Psychological: mood/affect normal, judgement normal Results Laboratory Result Diagram: 02/04/20 1213 02/04/20 1213 Laboratory Laboratory Tests Test 02/04/20 12:13 02/04/20 12:03 White Blood Count 10.66 x10e3/uL (4.8-10.8) Red Blood Count 4.88 x10e6/uL (4.3-5.7) Hemoglobin 13.8 g/dL (14.0-18.0) Hematocrit 41.2 % (38.2-49.6) Mean Corpuscular Volume 84.4 fL (81-99) Mean Corpuscular Hemoglobin 28.3 pg (28-32) Mean Corpuscular Hemoglobin Concent 33.5 g/dL (31-35) Red Cell Distribution Width 13.2 % (11.7-14.4) Platelet Count 274 x10e3/uL (140-360) Neutrophils (%) (Auto) 75.5 % (38.7-80.0) Lymphocytes (%) (Auto) 12.8 % (18.0-39.1) Monocytes (%) (Auto) 10.3 % (4.4-11.3) Eosinophils (%) (Auto) 0.7 % (0.0-6.0) Basophils (%) (Auto) 0.3 % (0.0-1.0) Neutrophils # (Auto) 8.1 (2.1-6.9) Lymphocytes # (Auto) 1.4 (1.0-3.2) Monocytes # (Auto) 1.1 (0.2-0.8) Eosinophils # (Auto) 0.1 (0.0-0.4) Basophils # (Auto) 0.0 (0.0-0.1) Absolute Immature Granulocyte (auto 0.04 x10e3/uL (0-0.1) Sodium Level 138 mmol/L (136-145) Potassium Level 3.6 mmol/L (3.5-5.1) Chloride Level 104 mmol/L (98-107) Carbon Dioxide Level 23 mmol/L (22-29) Anion Gap 14.6 mmol/L (8-16) Blood Urea Nitrogen 15 mg/dL (7-26) Creatinine 0.85 mg/dL (0.72-1.25) Estimat Glomerular Filtration Rate > 60 ML/MIN (60-) BUN/Creatinine Ratio 18 (6-25) Glucose Level 102 mg/dL (74-118) Calcium Level 9.5 mg/dL (8.4-10.2) Total Bilirubin 0.9 mg/dL (0.2-1.2) Aspartate Amino Transf (AST/SGOT) 14 IU/L (5-34) Alanine Aminotransferase (ALT/SGPT) 16 IU/L (0-55) Alkaline Phosphatase 78 IU/L (40-150) Creatine Kinase 35 IU/L (30-200) Creatine Kinase MB 0.60 ng/mL (0-5.0) Troponin I < 0.001 ng/mL (0-0.300) Total Protein 7.3 g/dL (6.5-8.1) Albumin 3.4 g/dL (3.5-5.0) Globulin 3.9 g/dL (2.3-3.5) Albumin/Globulin Ratio 0.9 (0.8-2.0) Urine Color Yellow (YELLOW) Urine Clarity Sl cloudy (CLEAR) Urine pH 6 (5 - 7) Urine Specific [place] 1.020 (1.010-1.025) Urine Protein 2+ (NEGATIVE) Urine Glucose (UA) Negative (NEGATIVE) Urine Ketones 2+ (NEGATIVE) Urine Blood Moderate (NEGATIVE) Urine Nitrite Negative (NEGATIVE) Urine Bilirubin Small (NEGATIVE) Urine Urobilinogen 0.2 mg/dL (0.2 - 1) Urine Leukocyte Esterase Small (NEGATIVE) Urine RBC >50 /HPF (0-5) Urine WBC >50 /HPF (0-5) Urine Epithelial Cells Few /LPF (NONE) Urine Bacteria Rare /HPF (NONE) Lab results reviewed: Yes Critical Care Time Subsequent provider I assumed direction of critical care for this patient from another provider of my specialty. Assessment & Plan Assessment & Plan Problems: (1) Bladder tumor (2) Complicated UTI (urinary tract infection) (3) Pyelonephritis Assessment & Plan 64M with bladder CA arrived to the ED with complaints of hematuria and urinary retention after kern removed by Dr. Hampel earlier today -UTI noted- ceftriaxone initiated, urine cultures sent prior to antibiotics Last Vital Signs Date Time Temp Pulse Resp B/P (MAP) Pulse Ox O2 Delivery O2 Flow Rate FiO2 02/04/20 12:00 83 18 128/91 98 02/04/20 11:47 99.1 Home Meds Reported Medications Telmisartan (MICARDIS) 40 Mg Tab, 80 MG PO DAILY, #30 TAB 10/21/19 Amlodipine Besylate (AMLODIPINE BESYLATE) 10 Mg Tablet, 10 MG PO PRN for HBP, #30 TAB 10/21/19 Discontinued Reported Medications Nitrofurantoin Monohyd/M-Cryst (MACROBID 100 MG CAPSULE) 100 Mg Capsule, 100 MG PO BID, CAP 01/16/20 Medications in the ED Cefepime HCl 50 ml @ 100 mls/hr Q24H STAT IV ; Start 02/04/20 at 13:19; Stop 02/04/20 at 13:48 MALINDA KELLY DO February 04, 2020 14:03
--- OUTSIDE RECORDS SUMMARY | 2020-02-04 14:15 | XMS REPORT | Clinical Summary ---
Author Author [facility] Organization [facility] Address Unknown Phone Unavailable Care Team Providers Care Bowling Or Skating Front Desk Clerk Name Role Phone Sabra Lawrence Marcos PCP [...] Taken Vital Sign Reading 09/12/2019 2:45 PM PROTOZOOLOGIST Blood Pressure 155/121 09/12/2019 2:45 PM PROTOZOOLOGIST Pulse 59 09/12/2019 10:56 AM PROTOZOOLOGIST Temperature 36.5 C (97.7 F) 09/12/2019 2:45 PM PROTOZOOLOGIST Respiratory Rate 18 09/12/2019 2:45 PM PROTOZOOLOGIST Oxygen Saturation 96% - Inhaled Oxygen - Concentration 09/12/2019 10:56 AM PROTOZOOLOGIST Weight 79.4 kg (175 lb) 09/12/2019 10:56 AM PROTOZOOLOGIST Height 170.2 cm (5' 7") 09/12/2019 10:56 AM PROTOZOOLOGIST Body Mass Index 27.41 Plan of Treatment Not on file Procedures Comments Procedure Name Priority Date/Time Associated Diag nosis URINALYSIS W/ MICROSCOPIC STAT 09/12/2019 1:[address] ABDOMEN/PELVIS WITH IV STAT 09/12/2019 CONTRAST 1:08 PM PROTOZOOLOGIST CBC W/PLT COUNT & AUTO STAT 09/12/2019 DIFFERENTIAL 11:37 AM PROTOZOOLOGIST PT/APTT STAT 09/12/2019 11:37 AM PROTOZOOLOGIST HEPATIC FUNCTION PANEL STAT 09/12/2019 11:37 AM PROTOZOOLOGIST CBC W/PLT COUNT & AUTO STAT 09/12/2019 DIFFERENTIAL 11:37 AM PROTOZOOLOGIST BASIC METABOLIC PANEL (7) STAT 09/12/2019 11:37 AM PROTOZOOLOGIST after 02/03/2019 Results * Urinalysis w/Microscopic (09/12/2019 1:10 PM PROTOZOOLOGIST) Color, UA Yellow [facility] Clarity, UA Clear [facility] Specific [place], UA 1.015 1.001 - 1.035 [facility] pH, UA 6.5 5.0 - 8.0 [facility] Protein, UA 30 mg/dL (A) Negative [facility] Glucose, UA Negative Negative [facility] Ketones, UA Negative Negative [facility] Bilirubin, UA Negative Negative [facility] Blood, UA Large (A) Negative [facility] Nitrite, UA Negative Negative [facility] Leukocytes, UA Trace (A) Negative [facility] Urobilinogen, UA 0.2 0.2 - 1.0 mg/dL [facility] RBC, UA 1,468 /HPF [facility] WBC, UA 27 /HPF [facility] Mucus Few [facility] Specimen Source [facility] Specimen Urine Performing Organization Address City/State/Zipcode Ph one Number [facility] [address] [place], [place] [address] * CT abdomen/pelvis with IV contrast (09/12/2019 1:08 PM PROTOZOOLOGIST) Specimen Narrative Performed At FINAL REPORT [place] ABDOMINAL AND PELVIS CT DATED 9 CLINICAL INFORMATION:Abdominal pain abdominal pain, hematuria TECHNIQUE:Axial images of the abdom en and pelvis were obtained from diaphragm to the pubic symphysis with i ntravenous contrast. This exam was performed according to [facility] departmental dose-optimization program, which includ [...] Report Verified Date/Time: 9 14:15:09 Reading Location: [facility] C013Y CT Body Reading Room Procedure Note Interface, External Ris In - 09/12/2019 2:17 PM PROTOZOOLOGIST FINAL REPORT ABDOMINAL AND PELVIS CT DATED [...] Report Verified Date/Time: 09/12/2019 14:15:09 Reading Location: [facility] B1 C013Y CT Body Reading Room Performing Organization Address [facility] Ph one Number GE RIS * PT/aPTT (09/12/2019 11:37 AM PROTOZOOLOGIST) Protime 14.0 11.9 - 14.[address] [facility] INR 1.1 <=5.9 [facility] PTT 31.8 22.5 - 36.[address] [facility] Specimen Blood Narrative Performed At Effective 02/16/2019: PT Reference Range Change [facility] New: 11.9-14.2Previous: 11.7-14.7 [facility] MEDICAL CE NTER RECOMMENDED COUMADIN/WARFARIN INR THERA PY RANGES STANDARD DOSE: 2.0-3.0Includes: PRO PHYLAXIS for venous thrombosis, systemic embolization; TREATMENT for venous thro mbosis and/or pulmonary embolus. HIGH RISK: Target INR is 2.5-3.5 for pa tients wiht mechanical heart valves. Performing Organization Address City/[facility] Ph one Number [address] [facility] * CBC with platelet count + automated diff (09/12/2019 11:37 AM PROTOZOOLOGIST) WBC 5.1 3.5 - 10.5 K/L [facility] RBC 5.56 4.63 - 6.08 M/L [facility] Hemoglobin 15.9 13.7 - 17.5 GM/DL [facility] Hematocrit 47.3 40.1 - 51.0 % [facility] MCV 85.1 79.0 - 92.[address] [facility] MCH 28.6 25.7 - 32.[address] [facility] MCHC 33.6 32.3 - 36.5 GM/DL [facility] RDW 12.8 11.6 - 14.4 % [facility] Platelets 291 150 - 450 K/CU MM [facility] MPV 9.0 (L) 9.4 - 12.[address] [facility] nRBC 0 0 - 0 /[address] [facility] % Neutros 51 % [facility] % Lymphs 36 % [facility] % Monos 10 % [facility] % Eos 2 % [facility] % Baso 1 % [facility] # Neutros 2.58 1.78 - 5.38 K/L [facility] # Lymphs 1.83 1.32 - 3.57 K/L [facility] # Monos 0.53 0.30 - 0.82 K/L [facility] # Eos 0.12 0.04 - 0.54 K/L [facility] # Baso 0.04 0.01 - 0.08 K/L [facility] Immature 0 0 - 1 % [facility] Granulocytes-Relative [facility] Specimen Blood Performing Organization Address City/State/Zipcode Ph one Number [facility] [address] [facility] * Hepatic function panel (09/12/2019 11:37 AM PROTOZOOLOGIST) Protein, Total 7.0 6.0 - 8.3 gm/dL [facility] Albumin 4.2 3.5 - 5.0 g/dL [facility] Total Bilirubin 0.6 0.2 - 1.2 mg/dL [facility] Bilirubin, Direct 0.2 0.1 - 0.5 mg/dL [facility] Alkaline Phosphatase 85 40 - 150 U/L [facility] AST 18 5 - 34 U/L [facility] ALT 23 6 - 55 U/L [facility] Specimen Blood Performing Organization Address [facility] one Number [phone] [place] [address] * Basic Metabolic Panel (09/12/2019 11:37 AM PROTOZOOLOGIST) Sodium 140 136 - 145 meq/L [facility] Potassium 3.8 3.5 - 5.1 meq/L [facility] Chloride 106 98 - 107 meq/L [facility] CO2 26 22 - 29 meq/L [facility] BUN 15 7 - 21 mg/dL [facility] Creatinine 0.88 0.57 - 1.25 mg/dL [facility] Glucose 105 70 - 105 mg/dL [facility] Calcium 9.1 8.4 - 10.2 mg/dL [facility] EGFR Comment: INSUFFICIENT CLINICAL [facility] DATA TO CALCULATE ESTIMATED [facility] GFR. Specimen Blood Performing Organization Address [facility] Ph one Number [place] [phone] [place], [place] [address] [facility] after 02/03/2019 Insurance Payer Benefit Subscriber ID Type Phone Address Plan / Group [facility] Contracted ALL [id number]
--- OUTSIDE RECORDS SUMMARY | 2020-02-04 14:16 | XMS REPORT ---
Author Author [facility] t Organization [facility] Address [address] [facility] [address] [facility] [address] [place] [address] Phone Unavailable Care Team Providers Care Watch Assembly Inspector Name Role Phone SABRA MONTEMAYOR MD PCP HAMPEL, NEHEMIA Attphys Unavailable Mansoor COONEY LAIASHVIN Attphys Unavailable WELDON, GERI ISAAK Attphys Unavailable Payers Payer Name Policy Type Policy Number Effective Date Expiration Date Lucila ohara [facility] [id number] [facility] [id number] [facility] Problems Condition Name Condition Details Condition Category Status Onset Date Resolution Date Last Treatment Date Treating Clinician Comments Source Neoplasm of bladder Bladder tumor Problem Active [facility] Complicated urinary tract infection Complicated UTI (urinary tract infection) Problem Active [facility] Pyelonephritis Pyelonephritis Problem Active [facility] Allergies, Adverse Reactions, Alerts This patient has no known allergies or adverse reactions. Medications Ordered Medication Name Filled Medication Name Start Date Stop Da te Current Medication? Ordering Clinician Indication Dosage Frequency Signature (SIG) Comments Components Source Amlodipine Besylate 10 Mg Tablet Amlodipine Besylate 10 Mg Tablet Yes 10 As Needed for Hbp [facility] Cephalexin Monohydrate (Keflex) 500 Mg Capsule Cephale didi Monohydrate (Keflex) 500 Mg Capsule Yes 500 Every 12 Hours [facility] Nifedipine (Nifedipine Er) 60 Mg Tablet.er Nifedipine (Nifedipine Er) 60 Mg Tablet.er Yes 60 Daily [facility] Telmisartan (Micardis) 40 Mg Tab Telmisartan (Micardis) 40 Mg Tab Yes 80 Daily [facility] Procedures Procedure Date / Time Performed Performing Clinician Sour e CT of abdomen and pelvis without contrast 2019-11-12 00:00:00 LALO SCOTT [facility] CYSTOSCOPY AND TREATMENT 2019-11-08 [facility], two views 2019-10-21 00:00:00 [facility] X-ray of chest, two views 2019-10-07 00:00:00 [facility] Encounters Start Date/Time End Date/Time Encounter Type Admission Type Attendi [facility] Care Department Encounter ID Source 2019-11-12 09:57:00 2019-11-15 18:06:00 Discharged Inpatient 1 LALO COONEY [facility] [id number] [facility] 2019-11-10 20:13:00 2019-11-10 23:18:00 Departed Emergency Room [facility] [id number] [facility] 2019-11-08 06:12:00 2019-11-08 06:12:00 Registered Surgical Day Car e 3 RISHABH TURNER [facility] [id number] [facility] 2019-10-07 11:21:00 2019-10-07 11:21:00 Registered Clinic 3 RISHABH TURNER [facility] [id number] [facility] Results Test Description Test Time Test Comments Results Result Comments Source RETROGRADE PYELOGRAM 2020-01-19 14:31:00 [place] [address] Patient Name: MOISÉS RUIZ MR #: [id number] : 1955 Age/Sex: 64/M Req #: [id number] Adm Physician: Ordered by: RISHABH TURNER MD Report #: [id number] Location: OR Room/Bed: Procedure: [id number] DX/RETROGRADE PYELOGRAM Exam Date: 01/19/20 Exam Time: 828 REPORT STATUS: Signed OR Fluoroscopy: IMPRESSION: Fluoroscopy service provided in the OR. Interpretation not requested. Signed by: Ricky Miles MD on 01/19/2020 2:31 PM Dictated By: RICKY MILES MD [address] scribed By: PARRISH on 01/19/20 1431 COPY TO: RISHABH TURNER MD CHEST 2 VIEWS 2020-01-17 12:50:00 [place] [address] Patient Name: MOISÉS RUIZ MR #: [id number] : 1955 Age/Sex: 64/M Req #: [id number] Adm Physician: Ordered by: RISHABH TURNER MD Report #: [id number] Location: OR Room/Bed: Procedure: [id number] DX/CHEST 2 VIEWS Exam Date: 01/17/20 Exam [...] Level (test code = 2571-8) 66 0-149 [facility] Center[facility] Eeetj9775-35-48 07:38:00* Test Item Value Reference Range Interpretation Comments Cholesterol Level (test code = 2093-3) 141 0-199 Less than 200 mg/dL Low Bcop756 - 239 mg/dL Borderline Zqer313 m g/dl and greater High Risk [facility] CenterLDL Ydyjjmadnvj8404-06-35 07:38:00* Test Item Value Reference Range Interpretation Comments LDL Cholesterol (test code = 2089-1) 87 60-130 [facility] CenterHDL Okxsdzmlwbf8793-54-61 07:38:00* Test Item Value Reference Range Interpretation Comments HDL Cholesterol (test code = 2085-9) 41 40-60 [facility] CenterCholesterol/HDL Gvucd3749-40-40 07:38:00 * Test Item Value Reference Range Interpretation Comments Cholesterol/HDL Ratio (test code = 9830-1) 3.4 3.9-4.7 [facility] CenterHemoglobin A1c Xnknder0383-49-78 07:31:00 * Test Item Value Reference Range Interpretation Comments Hemoglobin A1c Percent (test code = Hemoglobin A1c Percent) 5.7 4.0-7.0 [facility] Rgehm4140-89-43 05:50:00* Test Item Value Reference Range Interpretation Comments Sodium Level (test code = 2951-2) 140 136-145 [facility] CenterPotassium Wgbkm9469-23-18 05:50:00* Test Item Value Reference Range Interpretation Comments Potassium Level (test code = 2823-3) 3.5 3.5-5.1 [facility] CenterChloride Kzlqs7862-94-93 05:50:00* Test Item Value Reference Range Interpretation Comments Chloride Level (test code = 2075-0) 105 98-107 [facility] CenterCarbon Dioxide Irzdy3505-89-51 05:50:00* Test Item Value Reference Range Interpretation Comments Carbon Dioxide Level (test code = 2028-9) 28 22-29 [facility] CenterAnion Fsi4240-15-47 05:50:00* Test Item Value Reference Range Interpretation Comments Anion Gap (test code = 47894-2) 10.5 8-16 [facility] CenterBlood Urea Dldwsgac4446-87-57 05:50:00* Test Item Value Reference Range Interpretation Comments Blood Urea Nitrogen (test code = 3094-0) 17 7-26 [facility] CenterCreatinine2020-02-23 05:50:00* Test Item Value Reference Range Interpretation Comments Creatinine (test code = 2160-0) 0.84 0.72-1.25 [facility] CenterBUN/Creatinine Eacwj2986-07-21 05:50:00* Test Item Value Reference Range Interpretation Comments BUN/Creatinine Ratio (test code = 3097-3) 20 6-25 [facility] CenterEstimat Glomerular Filtration Rate 2019-11-13 05:50:00* Test Item Value Reference Range Interpretation Comments Estimat Glomerular Filtration Rate (test code = 120217773) > 60 >60 Ranges were taken from the National Kidney Disease Education Program and the [facility] Kidney Foundation literature.Reference ranges:60 or greater: Lgzewr67-90 ( for 3 consecutive months): Chronic kidney disease 15 or less: Kidney failureGuadalupe Regional Medical CenterGlucose Jozih6695-77-58 05:50:00* Test Item Value Reference Range Interpretation Comments Glucose Level (test code = CZS5157) 106 74-118 [facility] CenterCalcium Zknbg1406-63-81 05:50:00* Test Item Value Reference Range Interpretation Comments Calcium Level (test code = 17237-6) 8.7 8.4-10.2 [facility] CenterTotal Yfgvfuaon5034-13-77 05:50:00* Test Item Value Reference Range Interpretation Comments Total Bilirubin (test code = 1975-2) 0.7 0.2-1.2 [facility] CenterAspartate Amino Transf (AST/SGOT) 2019-11-13 05:50:00* Test Item Value Reference Range Interpretation Comments Aspartate Amino Transf (AST/SGOT) (test code = Aspartate Amino Transf (AST/SGOT)) 14 5-34 [facility] CenterAlanine Aminotransferase (ALT/SGPT) 2019-11-13 05:50:00* Test Item Value Reference Range Interpretation Comments Alanine Aminotransferase (ALT/SGPT) (test code = 1742-6) 23 0-55 [facility] CenterTotal Cqhlnzz7316-33-83 05:50:00* Test Item Value Reference Range Interpretation Comments Total Protein (test code = 2885-2) 5.9 6.5-8.1 [facility] CenterAlbumin2020-02-23 05:50:00* Test Item Value Reference Range Interpretation Comments Albumin (test code = 1751-7) 3.1 3.5-5.0 [facility] CenterGlobulin2020-02-23 05:50:00* Test Item Value Reference Range Interpretation Comments Globulin (test code = 72300-8) 2.8 2.3-3.5 [facility] CenterAlbumin/Globulin Vzoyn8473-52-42 05:50:00 * Test Item Value Reference Range Interpretation Comments Albumin/Globulin Ratio (test code = 1759-0) 1.1 0.8-2.0 [facility] CenterAlkaline Nomnjsdpgxk5915-51-45 05:50:00* Test Item Value Reference Range Interpretation Comments Alkaline Phosphatase (test code = 6768-6) 72 40-150 [facility] CenterWhite Blood Mgkce1076-21-31 05:26:00* Test Item Value Reference Range Interpretation Comments White Blood Count (test code = 6690-2) 8.36 4.8-10.8 [facility] CenterRed Blood Cqsvy2393-09-82 05:26:00* Test Item Value Reference Range Interpretation Comments Red Blood Count (test code = 789-8) 4.77 4.3-5.7 [facility] CenterHemoglobin2020-02-23 05:26:00* Test Item Value Reference Range Interpretation Comments Hemoglobin (test code = 25852-2) 13.6 14.0-18.0 [facility] CenterHematocrit2020-02-23 05:26:00* Test Item Value Reference Range Interpretation Comments Hematocrit (test code = 4544-3) 41.1 38.2-49.6 [facility] CenterMean Corpuscular Rlkrtp7824-13-07 05:26:00* Test Item Value Reference Range Interpretation Comments Mean Corpuscular Volume (test code = 787-2) 86.2 81-99 [facility] CenterMean Corpuscular Dmoqztmtnu8123-35-24 05:26:00* Test Item Value Reference Range Interpretation Comments Mean Corpuscular Hemoglobin (test code = 785-6) 28.5 28-32 [facility] CenterMean Corpuscular Hemoglobin Concent 2019-11-13 05:26:00* Test Item Value Reference Range Interpretation Comments Mean Corpuscular Hemoglobin Concent (test code = 786-4) 33.1 31-35 [facility] CenterRed Cell Distribution Gjgxw5696-61-98 05:26:00* Test Item Value Reference Range Interpretation Comments Red Cell Distribution Width (test code = 31148-8) 12.7 11.7 -14.4 [facility] CenterPlatelet Lwpia8279-08-02 05:26:00* Test Item Value Reference Range Interpretation Comments Platelet Count (test code = 777-3) 282 140-360 [facility] CenterNeutrophils (%) (Auto)2019-11-13 05:26:00 * Test Item Value Reference Range Interpretation Comments Neutrophils (%) (Auto) (test code = 86446-5) 66.8 38.7-80.0 [facility] CenterLymphocytes (%) (Auto)2019-11-13 05:26:00 * Test Item Value Reference Range Interpretation Comments Lymphocytes (%) (Auto) (test code = 736-9) 17.2 18.0-39.1 [facility] CenterMonocytes (%) (Auto)2019-11-13 05:26:00* Test Item Value Reference Range Interpretation Comments Monocytes (%) (Auto) (test code = 5905-5) 12.0 4.4-11.3 [facility] CenterEosinophils (%) (Auto)2019-11-13 05:26:00 * Test Item Value Reference Range Interpretation Comments Eosinophils (%) (Auto) (test code = 713-8) 3.1 0.0-6.0 [facility] CenterBasophils (%) (Auto)2019-11-13 05:26:00* Test Item Value Reference Range Interpretation Comments Basophils (%) (Auto) (test code = 706-2) 0.4 0.0-1.0 [facility] CenterIM GRANULOCYTES %2019-11-13 05:26:00* Test Item Value Reference Range Interpretation Comments IM GRANULOCYTES % (test code = IM GRANULOCYTES %) 0.5 0.0- 1.0 [facility] CenterNeutrophils # (Auto)2019-11-13 05:26:00* Test Item Value Reference Range Interpretation Comments Neutrophils # (Auto) (test code = 751-8) 5.6 2.1-6.9 [facility] CenterLymphocytes # (Auto)2019-11-13 05:26:00* Test Item Value Reference Range Interpretation Comments Lymphocytes # (Auto) (test code = 93600-3) 1.4 1.0-3.2 [facility] CenterMonocytes # (Auto)2019-11-13 05:26:00* Test Item Value Reference Range Interpretation Comments Monocytes # (Auto) (test code = 742-7) 1.0 0.2-0.8 [facility] CenterEosinophils # (Auto)2019-11-13 05:26:00* Test Item Value Reference Range Interpretation Comments Eosinophils # (Auto) (test code = 711-2) 0.3 0.0-0.4 [facility] CenterBasophils # (Auto)2019-11-13 05:26:00* Test Item Value Reference Range Interpretation Comments Basophils # (Auto) (test code = 704-7) 0.0 0.0-0.1 [facility] CenterAbsolute Immature Granulocyte (auto 2019-11-13 05:26:00* Test Item Value Reference Range Interpretation Comments Absolute Immature Granulocyte (auto (mandeep t code = Absolute Immature Granulocyte (auto) 0.04 0-0.1 [facility] CenterCT ABDOMEN/PELVIS WS8263-36-34 09:08:00 [place] [address] Patient Name: MOISÉS RUIZ MR #: [id number] : 1955 Age/Sex: 64/M Req #: [id number] Adm Physician: Ordered by: LALO COONEY MD Report #: [id number] Location: ER Room/Bed: Procedure: [id number] CT/ CT ABDOMEN/PELVIS WO Exam Date: 11/12/19 [...] 11/12/19916 COPY TO: LALO COONEY MD Urine OLP3676-29-60 08:38:00* Test Item Value Reference Range Interpretation Comments Urine WBC (test code = 5821-4) 11-20 0-5 [facility] CenterUrine GGC0076-59-90 08:38:00* Test Item Value Reference Range Interpretation Comments Urine RBC (test code = 49577-6) >50 0-5 [facility] CenterUrine Hlakugqh5832-15-68 08:38:00* Test Item Value Reference Range Interpretation Comments Urine Bacteria (test code = 39702-4) MODERATE NONE [facility] CenterUrine Epithelial Inxfz9011-39-96 08:38:00 * Test Item Value Reference Range Interpretation Comments Urine Epithelial Cells (test code = 73350-9) FEW NONE [facility] CenterUrine Eanlb9057-05-85 08:38:00* Test Item Value Reference Range Interpretation Comments Urine Mucus (test code = 8247-9) FEW RARE [facility] CenterUrine Rjyln3163-93-96 08:24:00* Test Item Value Reference Range Interpretation Comments Urine Color (test code = 5778-6) TANIYA YELLOW [facility] CenterUrine Itidzqo5802-95-66 08:24:00* Test Item Value Reference Range Interpretation Comments Urine Clarity (test code = 97447-6) CLOUDY CLEAR [facility] CenterUrine Specific Vxvtzeh6713-76-68 08:24:00 * Test Item Value Reference Range Interpretation Comments Urine Specific Remus (test code = 5811-5) >=1.030 1.010-1.02 5 [facility] CenterUrine wV0647-68-73 08:24:00* Test Item Value Reference Range Interpretation Comments Urine pH (test code = 10089-8) 6 5-7 [facility] CenterUrine Leukocyte Mrgcsrdj5990-33-88 08:24:00* Test Item Value Reference Range Interpretation Comments Urine Leukocyte Esterase (test code = 5799-2) TRACE NEGATIVE [facility] CenterUrine Rlnlzex2061-24-91 08:24:00* Test Item Value Reference Range Interpretation Comments Urine Nitrite (test code = 20504-9) POSITIVE NEGATIVE [facility] CenterUrine Vxbnbeu3834-28-41 08:24:00* Test Item Value Reference Range Interpretation Comments Urine Protein (test code = 5804-0) 3+ NEGATIVE [facility] CenterUrine Glucose (UA)2019-11-12 08:24:00* Test Item Value Reference Range Interpretation Comments Urine Glucose (UA) (test code = 2349-9) NEGATIVE NEGATIVE [facility] CenterUrine Vetzlis9391-05-88 08:24:00* Test Item Value Reference Range Interpretation Comments Urine Ketones (test code = 11648-0) TRACE NEGATIVE [facility] Jbafhxscvdfx7689-63-15 08:24:00* Test Item Value Reference Range Interpretation Comments Urine Urobilinogen (test code = 80668-9) 1 0.2-1 [facility] CenterUrine Piqszezgo8716-20-25 08:24:00* Test Item Value Reference Range Interpretation Comments Urine Bilirubin (test code = 1978-6) MODERATE NEGATIVE [facility] CenterUrine Qbowc5980-04-06 08:24:00* Test Item Value Reference Range Interpretation Comments Urine Blood (test code = 40702-0) 3+ NEGATIVE [facility] CenterBedside Cqixbnu5550-55-10 14:16:00* Test Item Value Reference Range Interpretation Comments Bedside Glucose (test code = 04048-8) 149 70-120 Meter ID: [id number] Regional Medical CenterCHEST 2 VIEWS 2019-10-21 12:33:00 [facility] [address] [place] [address] Patient Name: MOISÉS RUIZ MR #: [id number] : 1955 Age/Sex: 64/M Req #: [id number] Adm Physician: Ordered by: RISHABH TURNER MD Report #: [id number] Location: OR Room/Bed: Procedure: [id number] DX /CHEST 2 VIEWS Exam Date: 10/21/19 [...] COPY TO: RISHABH TURNER MD CHEST 2 HRWUI4279-87-40 12:48:00 [place] [address] Patient Name: MOISÉS RUIZ MR #: [id number] : [birth year] Age/Sex: 64/M Req #: [id number] Adm Physician: Ordered by: RISHABH TURNER MD Report #: [id number] Location: RAD Room/Bed: Procedure: [id number] DX /CHEST 2 VIEWS Exam Date: 10/07/19 [...] 10/07/191248 COPY TO: RISHABH GIRON MD CT, DQDKUZB3963-07-16 14:15:00Reason for exam:-> Abdominal painWhat is the patient's sedation requirement?->No SedationFINAL REPORT ABDOMINAL AND PELVIS CT DATED 09/12/2019 CLINICAL INFORMATION: Abdominal painabdominal pain, hematuria TECHNIQUE: Axial images of the abdomen and pelvis were obtained from diaphragm to the pubic symphysis with intravenous contrast. This exam was performed according to our [facility] ental dose-optimization program, which includes automated [...] cm enhancing mass is seen in the mauricio on of the left base of the [...] Verified Date/Ti me: 09/12/2019 14:15:09 Reading Location: [facility] C013Y CT Body Reading Room ALYSIS W/ BMRKONHZSVD8499-91-62 13:34:00* Test Item Value Reference Range Interpretation [...] SOURCE(BEAKER) (test code = 2795) HEPATIC FUNCTION UJSXL4094-84-76 12:09:00* Test Item Value Reference Range Interpretation [...] = 347) 23 U/L 6-55 BASIC METABOLIC WKFYU8427-35-16 12:09:00* Test Item Value Reference Range Interpretation [...] INSUFFICIENT CLINICAL DATA TO CALCULATE ESTIMATED GFR. PT/ONYD4986-43-50 12:03:00* Test Item Value Reference Range Interpretation [...] mechanical heart valves.CBC W/PLT COUNT & AUTO BQVICENIFAMQ5275-69-98 11:55:00* Test Item Value Reference Range Interpretation [...]
--- NOTE | 2020-02-04 16:24 | NUR ---
PT ARRIVED FROM ER. PT IS AAOX4. AT BEDSIDE. EDUCATED PT ABOUT FALL PRECAUTIONS. PT VERBALIZED UNDERSTANDING. CALL LIGHT WITH IN EASY REACH. INSTRUCTED PT TO USE CALL LIGHT FOR ALL THE NEEDS. BED IS LOW AND LOCKED. SIDE RAILS X2. PT DENIES NEEDS AT THIS TIME.
--- NOTE | 2020-02-04 16:30 | NUR ---
PAGED DR. MONTAÑO AND INFORMED PT ARRIVAL TO THE UNIT.
--- NOTE | 2020-02-04 17:00 | NUR ---
PT HOME MEDS RECONFIRMED .
[2020-02-04 18:00] VITALS: BP 128/83
[2020-02-04 18:09] VITALS: BP 128/83
[2020-02-04] MEDS ORDERED: ONDANSETRON HCL INJ 2MG/ML 2ML 2 MG/ML VIAL IV PRN (18:45)
[2020-02-04] MEDS ORDERED: MORPHINE SULFATE INJ 4 MG/ML INJ 1ML IV PRN (18:45)
[2020-02-04] MEDS ORDERED: ACETAMINOPHEN 325 MG TAB PO PRN (18:45)
--- NOTE | 2020-02-04 18:47 | NUR ---
NOTIFIED DR. TURNER ABOUT NEW CONSULT.
--- NOTE | 2020-02-04 19:20 | NUR ---
BEDSIDE SHIFT REPORT GIVEN TO THE CLINICAL UNIT EDUCATOR RN. PT DENIED FURTHER NEEDS.
--- NOTE | 2020-02-04 19:54 | NUR ---
RECEIVED PT IN BED AOX3 IS . RESPIRATIONS ARE EVEN AND UNLABORED. C./O ABD PAIN RT AC 20 G .TELE SHOWS SR .CALL LIGHT WITH IN REACH .CONTINUE TO MONITOR
[2020-02-04 20:00] VITALS: BP 141/91
[2020-02-04] MEDS ORDERED: AMLODIPINE BESYLATE 10 MG TAB PO SCH (20:45)
[2020-02-04] MEDS: DOCUSATE SODIUM 100 MG CAP PO SCH (21:00)
[2020-02-04] MEDS ORDERED: ZOLPIDEM TARTRATE 5 MG TAB PO PRN (21:00)
[2020-02-04] MEDS ORDERED: SODIUM CHLORIDE 0.9% 250ML 250 ML ONE (22:14)
[2020-02-04] MEDS: CEFEPIME 1GM/NS 0.9% 50 ML 50 ML IV SCH (22:28)
[2020-02-05] VITALS (9 sets, daily range): BP systolic 110–136; BP diastolic 78–89
[2020-02-05 05:37] LABS: BASOPHILS % 0.3 % (0.0-1.0); EOSINOPHILS # (AUTO) 0.1 (0.0-0.4); EOSINOPHILS % 1.4 % (0.0-6.0); HEMATOCRIT 37.7 % (38.2-49.6); HEMOGLOBIN 12.6 g/dL (14.0-18.0); LYMPHOCYTES # (AUTO) 1.6 (1.0-3.2); LYMPHOCYTES % 20.8 % (18.0-39.1); MEAN CORPUSCULAR HEMOGLOBIN 27.9 pg (28-32); MEAN CORPUSCULAR HGB CONC 33.4 g/dL (31-35); MEAN CORPUSCULAR VOLUME 83.4 fL (81-99); MONOCYTES # (AUTO) 1.1 (0.2-0.8); MONOCYTES % 14.6 % (4.4-11.3); NEUTROPHILS # (AUTO) 4.7 (2.1-6.9); NEUTROPHILS % 62.4 % (38.7-80.0); PLATELET COUNT 283 x10e3/uL (140-360); RED BLOOD COUNT 4.52 x10e6/uL (4.3-5.7); RED CELL DISTRIBUTION WIDTH 13.1 % (11.7-14.4)
--- NOTE | 2020-02-05 06:08 | NUR ---
PT C/O PAIN AND GIVEN ORDERED PAIN MEDICATION..CALL LIGHT WITH IN REACH .CONTINUE TO MONITOR
[2020-02-05 06:09] LABS: ANION GAP 15.4 mmol/L (8-16); BLOOD UREA NITROGEN 15 mg/dL (7-26); BUN/CREATININE RATIO 18 (6-25); CALCIUM 8.8 mg/dL (8.4-10.2); CARBON DIOXIDE 22 mmol/L (22-29); CHLORIDE 105 mmol/L (98-107); CREATININE, SERUM 0.83 mg/dL (0.72-1.25); EST GLOMERULAR FILTRATION RATE > 60 ML/MIN (60-); GLUCOSE 113 mg/dL (74-118); POTASSIUM 3.4 mmol/L (3.5-5.1); SODIUM 139 mmol/L (136-145)
--- NOTE | 2020-02-05 06:58 | NUR ---
BEDSIDE REPORT GIVEN TO THE ONCOMING NURSE.
--- NOTE | 2020-02-05 07:00 | NUR ---
Received bedside shift report from off going nurse. Patient in stable condition, no s/s of distress noted. no pain voiced. Telemetry applied and working. Bed in lowest position and working. Call light within reach.
[2020-02-05] MEDS: TELMISARTAN 40 MG TAB PO SCH (08:17)
[2020-02-05] MEDS: DOCUSATE SODIUM 100 MG CAP PO SCH ×2 (08:17→21:00)
--- NOTE | 2020-02-05 12:22 | NUR ---
H&P cc: dysuria HPI: 64yoM, PCP , developed abdominal pain for 2 days, and chills, came to hospital, found to have a UTI. PMH: bladder mass s/p resection 4 days ago (10/2019), HTN, PreDM, complicated UTI, left ureteral ds s/p stent PSHx: bladder mass resection Allergie;s see emr FH/SH; ; no cigs meds; see MAR ROS: no f/cp/sob/dizziness/cp/skin rash/diarrhea/nausea/confusion/focal limb weakness v/s; revd PE tired appearing anicteric ns1s2 mod bs soft; suprapubic tenderness. no e/t skin dry n. affect labs/meds revd A/P: Complicated UTI- merrem Hx left ureteral stent Hypokalemia HTN- home meds PreDM- ADA diet Prop: scd Dispo; f/u labs; Rick Moss MD,PhD
--- NOTE | 2020-02-05 12:34 | NUR ---
Notified about lab results of potassium being 3.4. Received orders for potassium 40meq PO once.
[2020-02-05] MEDS ORDERED: POTASSIUM CHLORIDE 20 MEQ TAB CR PO NR (12:45)
--- NOTE | 2020-02-05 19:02 | NUR ---
Completed bedside shift report and rounding. Patient in stable condition, no s/s of distress noted. No pain voiced. Telemetry applied and working. Bed in lowest position and locked. Call light within reach.
--- NOTE | 2020-02-05 20:03 | NUR ---
RECEIVED PT IN BED AOX3 IS . RESPIRATIONS ARE EVEN AND UNLABORED. DENIES PAIN RT AC 20 G .TELE SHOWS SR .CALL LIGHT WITH IN REACH .CONTINUE TO MONITOR
--- NOTE | 2020-02-05 20:03 | Consultation ---
DATE OF CONSULTATION: 02/05/2020 LOCATION: Room #208 of [facility]. REASON FOR CONSULTATION: To evaluate and assist in treating the patient for urinary tract infection. Information is gathered from the current medical record. HISTORY OF PRESENT ILLNESS: I interviewed the patient at the bedside. He is a 64-year-old male, who reports a history of borderline diabetes and hypertension, who has been diagnosed with bladder cancer. He reports that he has had two cystoscopic procedures with removal of bladder tumors and that he is scheduled to have another cystoscopy in about a month for re-evaluation, at which time, he says a decision would be made as to whether the bladder would be removed. He reports that he developed severe cramping abdominal pain about two days ago, associated with dysuria and frequency. He had no fevers. He had associated headache. No nausea, vomiting, or diarrhea. He came to the hospital for evaluation and was found at presentation with a temperature of 99.1 degrees Fahrenheit and a pulse rate of 85, respiratory rate of 18, and blood pressure 129/88. He had a CBC done that showed a white count of 10.6, a hemoglobin of 13.8, and platelet count 274. His BUN and creatinine were found to be 15 and 0.8 respectively. His urinalysis showed a cloudy urine with negative nitrite, positive esterase, more than 50 red and white cells each and a rare bacteria. A urine culture from February 03 is growing more than 100,000 colonies of gram-negative rods. The patient has been started on treatment with cefepime. PAST MEDICAL HISTORY: As reported above. He gives no history of chronic kidney disease, liver disease, myocardial infarction, or CVA. SOCIAL HISTORY: He has never smoked. He drinks socially. He denies other forms of recreational drug use. FAMILY HISTORY: Not contributory to his current hospitalization. ALLERGIES: HE HAS NO KNOWN MEDICATION ALLERGIES. MEDICATIONS: As reported earlier, he is on treatment with cefepime. The rest of his medications are per the medication administration report. REVIEW OF SYSTEMS: The patient is alert. His sensorium is clear. He had headache associated with his abdominal pain, dysuria, and frequency. No sore throat. No body aches. No nausea, vomiting, or diarrhea. No pruritus or rash. PHYSICAL EXAMINATION: GENERAL: He is a pleasant adult male. He is alert, responsive. He appears ill but nontoxic and is in no acute distress. VITAL SIGNS: The maximum temperature recorded since presentation is 99.2 degrees Fahrenheit, most recent temperature is 98.4. He is hemodynamically stable. HEENT: He has no pallor. There is no icterus. No oropharyngeal lesions. NECK: Supple. CHEST: Symmetric. LUNGS: Sound clear. HEART: Sounds are regular without a significant murmur. ABDOMEN: Full, soft, nontender with normal bowel sounds. SKIN: There is no acute erythema of his extremities. LABORATORY DATA: His white count at presentation 10.6 and currently 7.6, hemoglobin 12.6, and platelet count 283. Differentials on the white count appear unremarkable. His serum creatinine is 0.8. Urinalysis is as reported above. Coronavirus PCR collected on February 03 is being processed. There are no current imaging reports. IMPRESSION: This 64-year-old male has a history of bladder cancer for which he has had two previous cystoscopic procedures with removal of tumors. He is admitted to hospital with gram-negative urinary tract infection, present at admission. I suggest continue treatment with cefepime and follow up on his cultures. Monitor temperature, CBC, renal function. I have discussed the findings and treatment with the patient at the bedside. I will discuss the patient with Dr. Moss, whom I thank for the consult and opportunity to participate in the patient's care. MD BRYAN Duffy/MIKEYL /[id number]
[2020-02-05] MEDS: CEFEPIME 1GM/NS 0.9% 50 ML 50 ML IV SCH (20:45)
[2020-02-06] VITALS (9 sets, daily range): BP systolic 123–152; BP diastolic 80–95
--- NOTE | 2020-02-06 05:48 | NUR ---
PT DENIES PAIN .NO ACUTE DISTRESS NOTED .CALL LIGHT WITH IN REACH .CONTINUE TO MONITOR
--- NOTE | 2020-02-06 07:00 | NUR ---
BEDSIDE SHIFT REPORT RECEIVED FROM THE SWITCH FOREMAN RN. EDUCATED PT ABOUT FALL PRECAUTIONS. PT VERBALIZED UNDERSTANDING. CALL LIGHT WITH IN EASY REACH. INSTRUCTED PT TO USE CALL LIGHT FOR ALL THE NEEDS. BED IS LOW AND LOCKED. SIDE RAILS X2. PT DENIES NEEDS AT THIS TIME.
--- NOTE | 2020-02-06 07:16 | NUR ---
BEDSIDE REPORT GIVEN TO THE ONCOMING NURSE
[2020-02-06] MEDS: DOCUSATE SODIUM 100 MG CAP PO SCH ×2 (09:00→21:01)
[2020-02-06] MEDS: TELMISARTAN 40 MG TAB PO SCH (09:00)
--- NOTE | 2020-02-06 13:00 | NUR ---
PAGED DR. MONTAÑO AND REPORTED K LEVEL 3.4
--- NOTE | 2020-02-06 13:35 | Progress Note ---
DATE: 02/06/2020 SUBJECTIVE: The patient is fairly stable. He is in no distress. He is still complaining of intermittent upper abdominal pain. No nausea, vomiting, or diarrhea. No adverse medication reaction reported. OBJECTIVE: VITAL SIGNS: Overnight, his maximum temperature was up to 99.1 degrees Fahrenheit. His most recent temperature is 98.6. He is hemodynamically stable. HEENT: He has no pallor. There is no icterus. No oropharyngeal lesions. NECK: Supple. CHEST: Symmetric. LUNGS: Clear. HEART: Sounds are regular. There is no new murmur. ABDOMEN: Full, soft, nontender with normal bowel sounds. EXTREMITIES: There is no acute erythema of his extremities. LABORATORY DATA: On February 04, his white count was 7.6, hemoglobin 12.6, platelet count 283. His serum creatinine 0.8. His urine culture from February 03 is growing enterobacter cloacae sensitive to Bactrim, fluoroquinolones, cephalosporins and resistant to some cephalosporins and resistant to ampicillin, cefazolin, and cefuroxime. There are no recent imaging reports. IMPRESSION: He has urinary tract infection due to Enterobacter species sensitive to recurrent antibiotics. We will get a CT scan of his abdomen and pelvis in light of his persistent complaint of abdominal pain. Continue current antibiotic treatment. Continue to monitor clinical response to treatment. He may be able to discharge on the fluoroquinolones by mouth if no other complicated issues are found on CT scan. MD BRYAN Duffy/CARI /[id number]
--- NOTE | 2020-02-06 14:30 | NUR ---
IM- progress note O/n see below ROS: no f/cp/sob/dizziness/cp/skin rash/diarrhea/nausea/confusion/focal limb weakness v/s; revd PE tired appearing anicteric ns1s2 mod bs soft; suprapubic tenderness. Left flank tenderness no e/t skin dry n. affect labs/meds revd A/P: Complicated UTI- merrem Left pyelonephritis- POA; cont IV abx Hx left ureteral stent Hypokalemia HTN- home meds PreDM- ADA diet Prop: scd Dispo; f/u labs; 5-18 f/u CT abdomen; home on cipro; Urology to decide if urinary stent needs to be removed; Left pyelonephritis- cont abx; Rick Moss MD,PhD
[2020-02-06] MEDS ORDERED: CIPRO500 MG PO (14:31)
[2020-02-06] MEDS ORDERED: ONDANSETRON HCL 4 MG ORAL DISINTEGRATING TAB PO PRN (15:45)
--- NOTE | 2020-02-06 16:50 | Diagnostic Imaging Report ---
CT of the abdomen and pelvis, with contrast, 02/06/2020. History: Pyelonephritis. Comparison: 11/12/2019. Technique: Multidetector CT scanning of the abdomen and pelvis was performed from the level of the lung bases to the inferior pubic rami after intravenous administration of contrast. Early and delayed phases were scanned. Coronal and sagittal multiplanar reformations were obtained. RADIATION DOSE: Total DLP: 1146 mGy*cm Dose modulation, iterative reconstruction, and/or weight based adjustment of the mA/kV was utilized to reduce the radiation dose to as low as reasonably achievable. Discussion: LUNG BASES: Bibasilar opacities and 2 right lower lobe pulmonary nodules are again noted, measuring 6 and 8 mm. ABDOMEN: Multiple bilateral renal subcentimeter hypodensities are again noted. Right renal upper pole exophytic renal hypodensity is present, measuring 2.1 cm in diameter and 41 Hounsfield units in density. There is no evidence of exophytic mass in the left kidney. Left internal ureteral stent is present extending from the left renal pelvis to the bladder. There is mild left hydronephrosis. There is striated appearance of the left renal upper pole with adjacent mesenteric fat stranding, without focal fluid collection. The liver, gallbladder, biliary tree, spleen, pancreas, and adrenal glands are normal. The hepatic vein, portal vein, and splenic vein are patent. The abdominal aorta is within normal limits for size. There is no bowel dilatation. The appendix is visualized and is normal. There is no evidence of adenopathy or free fluid. PELVIS: Left internal ureteral stent terminates in the left bladder base. A 3 cm left posterior lateral bladder diverticulum is identified containing multiple irregular stones. There is mild diffuse bladder wall thickening. The prostate is mildly prominent measuring 5.2 cm in diameter. Seminal vesicles unremarkable. There is no evidence of free fluid or adenopathy. BONES AND SOFT TISSUES: Degenerative changes are present throughout the lumbar spine without evidence of lytic or sclerotic lesion. IMPRESSION: 1. Findings consistent with left pyelonephritis without evidence of abscess. Mild left hydronephrosis is present, new since prior exam. Left internal ureteral stent is unchanged in position. 2. Multiple bilateral renal hypodensities, most of which are too small to characterize, statistically most likely representing cysts. Probable hyperdense right renal cyst is again noted. These may be followed with renal ultrasound in 3-6 months. 3. Diffuse bladder thickening and left bladder diverticulum containing stones are again noted. Signed by: King Saldivar on 02/06/2020 4:46 PM
--- NOTE | 2020-02-06 17:23 | NUR ---
DR. MONTAÑO AT BEDSIDE. CANCEL D/C PER THE DR. NICO REED AND INFORMED THE SAME.
--- NOTE | 2020-02-06 19:00 | NUR ---
BEDSIDE SHIFT REPORT GIVEN TO THE DATA INTEGRATION ARCHITECT RN. PT DENIED FURTHER NEEDS.
--- NOTE | 2020-02-06 19:06 | NUR ---
RECEIVED THE PATIENT IN REPORT.LYEING IN THE BED.STABLE CONDITION.
--- NOTE | 2020-02-06 20:01 | NUR ---
Assessment done.no resp.distress.no pain voiced.CT abd & pelvis report notified to .patient refused to wear tele box.notified to .bed locked and in lowest position.phone and call light within reach.instructed to call for assistance as needed.
[2020-02-06] MEDS: CEFEPIME 1GM/NS 0.9% 50 ML 50 ML IV SCH (21:01)
[2020-02-07] VITALS (8 sets, daily range): BP systolic 129–160; BP diastolic 89–100
--- NOTE | 2020-02-07 07:05 | NUR ---
BED SIDE SHIFT REPORT GIVEN TO ONCOMING RN.STABLE CONDITION.
[2020-02-07] MEDS: DOCUSATE SODIUM 100 MG CAP PO SCH ×2 (07:59→21:42)
[2020-02-07] MEDS: TELMISARTAN 40 MG TAB PO SCH (08:00)
--- NOTE | 2020-02-07 08:20 | NUR ---
IM- progress note O/n see below ROS: no f/cp/sob/dizziness/cp/skin rash/diarrhea/nausea/confusion/focal limb weakness v/s; revd PE tired appearing anicteric ns1s2 mod bs soft; suprapubic tenderness. Left flank tenderness no e/t skin dry n. affect labs/meds revd A/P: Complicated UTI- merrem Left pyelonephritis- POA; cont IV abx Hx left ureteral stent Hypokalemia HTN- home meds PreDM- ADA diet Prop: scd Dispo; f/u labs; 5-18 f/u CT abdomen; home on cipro; Urology to decide if urinary stent needs to be removed; Left pyelonephritis- cont abx; 5-19 check labs Rick Moss MD,PhD
[2020-02-07] MEDS ORDERED: SODIUM CHLORIDE 0.9% 50ML 50 ML ONE (12:24)
[2020-02-07] MEDS ORDERED: IOPAMIDOL 370 MG/ML 200 ML INFUS..BTL INJ ONE (12:25)
--- NOTE | 2020-02-07 12:30 | NUR ---
ASSESSMENT: Spiritual concern Pt worried for family. Pt states he is concerned for his family in "in this crazy world." Pt identified as Jehovah'S Witness. Intervention: Provided hospitality and empathic listening. Provided prayer. Outcome: Pt expressed appreciation for visit. No need to follow at this time. SARITA MONTAGUE Rn Case Mgr Spiritual Care Department O: [phone]
--- NOTE | 2020-02-07 14:35 | Progress Note ---
DATE: 02/07/2020 SUBJECTIVE: The patient is alert and responsive. I met him in the bedside chair. He is still complaining of intermittent left flank pain. No nausea, vomiting, or diarrhea. No frequency or dysuria now. No other systemic complaints reported. OBJECTIVE: VITAL SIGNS: In the past 24 hours, he had temperatures up to 98.7 degrees Fahrenheit. GENERAL: He is hemodynamically stable. He has no pallor. There is no icterus. No oropharyngeal lesions. NECK: Supple. CHEST: Symmetric. LUNGS: Clear. HEART: Sounds are regular. There is no new murmur. ABDOMEN: Soft. Bowel sounds are present. There is mild left flank tenderness. EXTREMITIES: No acute erythema of his extremities. LABORATORY DATA: His white count on February 04 was 7.6, hemoglobin 12.6, platelet count 283, serum creatinine 0.8. Urine culture February 03, grew enterobacter cloacae. Sensitivities have been reviewed. A CT scan of the abdomen and pelvis on February 05, reports left pyelonephritis without abscess. There is mild left hydronephrosis with left internal ureteral stent in place. There may be multiple cysts. There is diffuse bladder thickening and the left bladder diverticulum containing stones. IMPRESSION: He is on treatment for a complicated urinary tract infection. He has left pyelonephritis and hydronephrosis with a stent in place. He has a history of bladder cancer. I suggest we continue current antibiotic treatment. I have discussed the patient with Dr. Moss. Plan is to have Urology evaluate the patient. We may be able to discharge him on oral antibiotics once he is stable for discharge. MD BRYAN Duffy/MODL /[id number]
--- NOTE | 2020-02-07 19:10 | NUR ---
RECEIVED THE PATIENT IN REPORT.SITTING IN THE CHAIR.STABLE CONDITION.
--- NOTE | 2020-02-07 19:31 | NUR ---
walking round complete pt stable at shift change.
[2020-02-07] MEDS: CEFEPIME 1GM/NS 0.9% 50 ML 50 ML IV SCH (20:45)
[2020-02-08 04:52] VITALS: BP 112/76
--- NOTE | 2020-02-08 06:58 | NUR ---
Bed side shift report given to oncoming RN.stable condition.
--- NOTE | 2020-02-08 07:16 | NUR ---
IM- progress note O/n see below ROS: no f/cp/sob/dizziness/cp/skin rash/diarrhea/nausea/confusion/focal limb weakness v/s; revd PE tired appearing anicteric ns1s2 mod bs soft; suprapubic tenderness. Left flank tenderness no e/t skin dry n. affect labs/meds revd A/P: Complicated UTI- merrem Left pyelonephritis- POA; cont IV abx Hx left ureteral stent Hypokalemia HTN- home meds PreDM- ADA diet Prop: scd Dispo; f/u labs; 5-18 f/u CT abdomen; home on cipro; Urology to decide if urinary stent needs to be removed; Left pyelonephritis- cont abx; -19 check labs 5-20 f/u urology for plan of care regarding stent. Rick Moss MD,PhD
[2020-02-08 08:44] VITALS: BP 132/98
[2020-02-08] MEDS: DOCUSATE SODIUM 100 MG CAP PO SCH (08:46)
[2020-02-08] MEDS: TELMISARTAN 40 MG TAB PO SCH (08:46)
[2020-02-08 09:08] VITALS: BP 132/98
[2020-02-08 12:44] VITALS: BP 111/88
[2020-02-08] MEDS ORDERED: LEVAQUIN500 MG PO (13:13)
--- NOTE | 2020-02-08 13:13 | Progress Note ---
DATE: 02/08/2020 SUBJECTIVE: The patient is fairly stable. He is in no distress. He has no new systemic complaints. He is tolerating the medications. OBJECTIVE: VITAL SIGNS: Maximum temperature in the past 24 hours was up to 98.2 degrees Fahrenheit. GENERAL: He is hemodynamically stable. He has no pallor. There is no icterus. No oropharyngeal lesions. NECK: Supple. CHEST: Symmetric. LUNGS: Clear. HEART: Sounds are regular. There is no new murmur. ABDOMEN: Soft, nontender. Bowel sounds are normal. EXTREMITIES: No acute erythema of his extremities. LABORATORY DATA: His white count on February 04 is 7.6, hemoglobin 12.6, platelet count 283. Serum creatinine 0.8. There are no new positive culture reports. February 03 urine culture grew enterobacter, sensitive to some cephalosporins and fluoroquinolones. IMPRESSION: He has a complicated urinary tract infection with pyelonephritis and hydronephrosis. He has a left ureteral stent. There is history of bladder cancer. I suggest the patient can be discharged on Levaquin for 10 more days of treatment with close outpatient followup. MD BRYAN Duffy/MODL /[id number]
== END 2020-02-08 13:32 | disposition home or self-care (01) | DRG 699 ==
LOC: ER 11:34 → ERHOLD 13:19 → MED/SURG2 15:34 → OBSVTOIN 02-06 21:59
PROVIDERS: ADMIT Internal Medicine; ATTEND Internal Medicine
DX: T83.593A Infection and inflammatory reaction due to other urinary stents, initial encounter (principal); N12 Tubulo-interstitial nephritis, not specified as acute or chronic; N13.6 Pyonephrosis; Z16.20 Resistance to unspecified antibiotic; I10 Essential (primary) hypertension; R73.03 Prediabetes; E87.6 Hypokalemia; Z85.51 Personal history of malignant neoplasm of bladder; N32.3 Diverticulum of bladder; N21.0 Calculus in bladder; Z96.0 Presence of urogenital implants; B96.89 Other specified bacterial agents as the cause of diseases classified elsewhere
CPT/HCPCS: 36415; 74177; 80048; 80053; 81001; 82550; 82553; 82948; 84132; 84484; 85025; 87086; 87186; 87635; 99284; G0378; J0692; J2270; J2405; J7050; Q9967

== ENCOUNTER → 2020-05-02 | Day surgery (SDC) | payer MEDICARE, OTHER ==
[2020-04-27 14:24] LABS: BASOPHILS % 0.5 % (0.0-1.0); EOSINOPHILS # (AUTO) 0.1 (0.0-0.4); EOSINOPHILS % 2.2 % (0.0-6.0); HEMATOCRIT 42.8 % (38.2-49.6); HEMOGLOBIN 14.2 g/dL (14.0-18.0); LYMPHOCYTES # (AUTO) 1.8 (1.0-3.2); LYMPHOCYTES % 27.6 % (18.0-39.1); MEAN CORPUSCULAR HEMOGLOBIN 27.3 pg (28-32); MEAN CORPUSCULAR HGB CONC 33.2 g/dL (31-35); MEAN CORPUSCULAR VOLUME 82.1 fL (81-99); MONOCYTES # (AUTO) 0.6 (0.2-0.8); MONOCYTES % 9.4 % (4.4-11.3); NEUTROPHILS # (AUTO) 3.8 (2.1-6.9); PLATELET COUNT 306 x10e3/uL (140-360); RED BLOOD COUNT 5.21 x10e6/uL (4.3-5.7); RED CELL DISTRIBUTION WIDTH 12.9 % (11.7-14.4)
[~2020-05-02] MED LIST changes: +ACETAMINOPHEN/CODEINE 300MG - 30MG TAB ONE; +B&O 60MG R/S 60 MG SUPP PR ONE; +CEFAZOLIN SOD 1 GM/NS 50ML 50 ML IV ONE; +CIPRO500 MG PO; +DEXAMETHASONE SOD PHOS INJ 4 MG/ML VIAL ONE; +FENTANYL CITRATE/PF 100MCG/2 ML INJ ONE; +GLYCOPYRROLATE INJ 0.2 MG/ML VIAL ONE; +INDIGOTINDISULFONATE SODIUM 8 MG/ML AMP IJ ONE; +IOPAMIDOL 300MG/ML 50ML INFUS..BTL IV ONE; +LEVAQUIN500 MG PO; +LIDOCAINE HCL 2% LOCAL INJ 5 ML SDV VIAL INJ ONE; +MIDAZOLAM HCL 2 MG/2 ML VIAL ONE; +NEOSTIGMINE 1 MG/ML 10ML VIAL ONE; +ONDANSETRON HCL INJ 2MG/ML 2ML 2 MG/ML VIAL ONE; +PROPOFOL IV EMULSION 10 MG/ML 20 ML VIAL ONE; +ROCURONIUM BROMIDE 10 MG/ML 5ML VIAL IV ONE; +SEVOFLURANE INHAL SOLN 250 ML PEN BTL ONE
[2020-05-02 11:36] VITALS: BP 129/86
--- NOTE | 2020-05-02 13:09 | Operative Report ---
DATE OF PROCEDURE: 05/02/2020 SURGEON: Mil Trujillo MD SERVICE: Urology. PREOPERATIVE DIAGNOSES: 1. History of transitional cell carcinoma of the bladder. 2. Left J-stent. 3. Microhematuria. POSTOPERATIVE DIAGNOSES: 1. History of transitional cell carcinoma of the bladder. 2. Left J-stent. 3. Microhematuria. OPERATIONS PERFORMED: 1. Cystoscopy, right retrograde pyelograms under fluoroscopic control. 2. Removal of double J-stent from the left side. 3. TUR of the area of the UO on the right side, where the tumour was present in the past. 4. Interpretation of x-ray, radiologist not present. 5. Supervision of fluoroscopy, radiologist not present. CANDY SEPARATOR HARD: None. ANESTHESIA: General. CLINICAL INDICATION NOTE: A 65-year-old patient with history of bladder tumor. The patient was brought for re-resection of the area as well as removal of double J-stent on the left side. Procedure was discussed with the patient and . Pending the results, we will consider additional steps. DESCRIPTION OF PROCEDURE AND FINDINGS: After proper level of anesthesia was achieved, the patient was placed in lithotomy position, prepped and draped in a sterile fashion. Urethra inspected and unremarkable. The outlet was normal and minimally large prostate. Bladder was very minimally trabeculated. Right UO was normal. Irregular areas are present around the left UO which cannot be identified clearly the double J-stent, to be perfusing from that area. Following this, the right retrograde pyelogram was done under fluoroscopic control. The system was unremarkable. Following this, the left J was removed. It was not possible to identify clearly the orifice after that, not even after injecting methylene blue IV. Following this, scope was removed. Resectoscope was inserted and the area was resected. It is not for sure that this was tumor, it could be just edema and reaction. Any visible bleeding points were carefully coagulated. A 22-Japanese 3-way Reid catheter was inserted. The patient was transferred in satisfactory condition to recovery room. He will be followed. He was given pain medicine as well as antibiotic for 5 days. Mil Trujillo MD NH/MODL /[id number]
== END | disposition home or self-care (01) ==
LOC: OR 06:51
PROVIDERS: ATTEND Urology
DX: C67.9 Malignant neoplasm of bladder, unspecified (principal); Z46.6 Encounter for fitting and adjustment of urinary device; N32.89 Other specified disorders of bladder; N39.0 Urinary tract infection, site not specified; I10 Essential (primary) hypertension; R73.03 Prediabetes; R00.1 Bradycardia, unspecified; Z01.810 Encounter for preprocedural cardiovascular examination; Z01.812 Encounter for preprocedural laboratory examination; Z11.59 Encounter for screening for other viral diseases
CPT/HCPCS: 36415; 52005; 74420; 85025; 88307; 93005; C1758 ×2; J0690; J1100; J2001; J2405; J2704; J2710; Q9967; U0002

== ENCOUNTER 2020-10-28 17:23 | Emergency (ER) | payer MEDICARE ==
[~2020-10-28] VITALS: Ht 172.7 cm; Wt 78.0 kg
[~2020-10-28 17:23] MED LIST changes: -ACETAMINOPHEN/CODEINE 300MG - 30MG TAB ONE; -B&O 60MG R/S 60 MG SUPP PR ONE; -CEFAZOLIN SOD 1 GM/NS 50ML 50 ML IV ONE; -DEXAMETHASONE SOD PHOS INJ 4 MG/ML VIAL ONE; -FENTANYL CITRATE/PF 100MCG/2 ML INJ ONE; -GLYCOPYRROLATE INJ 0.2 MG/ML VIAL ONE; -INDIGOTINDISULFONATE SODIUM 8 MG/ML AMP IJ ONE; -IOPAMIDOL 300MG/ML 50ML INFUS..BTL IV ONE; -LIDOCAINE HCL 2% LOCAL INJ 5 ML SDV VIAL INJ ONE; -MIDAZOLAM HCL 2 MG/2 ML VIAL ONE; -NEOSTIGMINE 1 MG/ML 10ML VIAL ONE; -ONDANSETRON HCL INJ 2MG/ML 2ML 2 MG/ML VIAL ONE; -PROPOFOL IV EMULSION 10 MG/ML 20 ML VIAL ONE; -ROCURONIUM BROMIDE 10 MG/ML 5ML VIAL IV ONE; -SEVOFLURANE INHAL SOLN 250 ML PEN BTL ONE
[2020-10-28] MEDS ORDERED: ONDANSETRON HCL INJ 2MG/ML 2ML 2 MG/ML VIAL IV STA (17:39)
[2020-10-28] MEDS ORDERED: MECLIZINE HCL 12.5 MG TAB PO ONE (17:45)
[2020-10-28 18:10] LABS: BASOPHILS % 0.3 % (0.0-1.0); EOSINOPHILS # (AUTO) 0.1 (0.0-0.4); EOSINOPHILS % 0.5 % (0.0-6.0); HEMATOCRIT 43.9 % (38.2-49.6); HEMOGLOBIN 14.8 g/dL (14.0-18.0); LYMPHOCYTES # (AUTO) 1.2 (1.0-3.2); MEAN CORPUSCULAR HEMOGLOBIN 27.7 pg (28-32); MEAN CORPUSCULAR HGB CONC 33.7 g/dL (31-35); MEAN CORPUSCULAR VOLUME 82.1 fL (81-99); MONOCYTES # (AUTO) 0.5 (0.2-0.8); MONOCYTES % 4.4 % (4.4-11.3); NEUTROPHILS # (AUTO) 10.1 (2.1-6.9); NEUTROPHILS % 84.2 % (38.7-80.0); PLATELET COUNT 380 x10e3/uL (140-360); RED BLOOD COUNT 5.35 x10e6/uL (4.3-5.7); RED CELL DISTRIBUTION WIDTH 13.1 % (11.7-14.4)
[2020-10-28 18:17] LABS: ALBUMIN 4.3 g/dL (3.5-5.0); ALBUMIN/GLOBULIN RATIO 1.2 (0.8-2.0); ANION GAP 15.8 mmol/L (8-16); CALCIUM 9.7 mg/dL (8.4-10.2); CREATININE, SERUM 1.43 mg/dL (0.72-1.25); POTASSIUM 3.8 mmol/L (3.5-5.1)
[2020-10-28 18:21] LABS: CLARITY,URINE CLOUDY (CLEAR); COLOR,URINE YELLOW (YELLOW)
[2020-10-28 18:22] LABS: KETONES,URINE NEGATIVE (NEGATIVE); LEUKOCYTE ESTERASE ,URINE TRACE (NEGATIVE); NITRITE,URINE NEGATIVE (NEGATIVE); PHENCYCLIDINE SCREEN,URINE NEGATIVE (NEGATIVE); PROTEIN,URINE DIPSTICK 2+ (NEGATIVE)
[2020-10-28 18:23] LABS: AMPHETAMINES SCREEN,URINE NEGATIVE (NEGATIVE); BACTERIA,URINE MANY /HPF; BENZODIAZEPINES SCREEN,URINE NEGATIVE (NEGATIVE); EPITHELIAL CELLS,URINE MANY /LPF; RBC,URINE >50 /HPF (0-5); URINE UROBILINOGEN 0.2 mg/dL (0.2 - 1); WBC,URINE (MAN) >50 /HPF (0-5)
[2020-10-28 18:24] LABS: CREATINE KINASE MB 1.7 ng/mL (0-5.0)
[2020-10-28] MEDS ORDERED: CEFTRIAXONE SOD 1 GM/NS 50 ML 50 ML IV ONE (19:00)
[2020-10-28 21:22] VITALS: BP 168/98
== END 2020-10-28 21:25 | disposition home or self-care (01) ==
LOC: ER 17:26
DX: R42 Dizziness and giddiness (principal); R11.2 Nausea with vomiting, unspecified; F12.90 Cannabis use, unspecified, uncomplicated; N39.0 Urinary tract infection, site not specified; I10 Essential (primary) hypertension; Z85.51 Personal history of malignant neoplasm of bladder
CPT/HCPCS: 36415; 70450; 71045; 80053; 80307; 81001; 82550; 82553; 84484; 85025; 87086; 93005; 99284; J0696; J2405; J8597

== ENCOUNTER → 2021-02-19 | Day surgery (SDC) | payer MEDICARE ==
[2021-02-15 13:12] LABS: BASOPHILS % 0.4 % (0.0-1.0); EOSINOPHILS # (AUTO) 0.2 (0.0-0.4); EOSINOPHILS % 3.2 % (0.0-6.0); HEMOGLOBIN 12.8 g/dL (14.0-18.0); LYMPHOCYTES # (AUTO) 2.1 (1.0-3.2); LYMPHOCYTES % 29.7 % (18.0-39.1); MEAN CORPUSCULAR HEMOGLOBIN 26.5 pg (28-32); MEAN CORPUSCULAR VOLUME 82.8 fL (81-99); MONOCYTES # (AUTO) 0.7 (0.2-0.8); MONOCYTES % 10.2 % (4.4-11.3); NEUTROPHILS % 56.1 % (38.7-80.0); PLATELET COUNT 365 x10e3/uL (140-360); RED BLOOD COUNT 4.83 x10e6/uL (4.3-5.7); RED CELL DISTRIBUTION WIDTH 13.2 % (11.7-14.4)
[2021-02-15 13:27] LABS: ANION GAP 13.7 mmol/L (8-16); CALCIUM 9.3 mg/dL (8.4-10.2); CREATININE, SERUM 1.32 mg/dL (0.72-1.25); POTASSIUM 4.7 mmol/L (3.5-5.1)
[~2021-02-19] MED LIST changes: +ATROPINE SULFATE 1 MG/ML VIAL ONE; +CEFAZOLIN SOD 1 GM/NS 50ML 50 ML IV ONE; +CLONIDINE HCL0.3 MG PO; +COLACE100 MG PO; +CYCLOBENZAPRINE10 MG PO; +DEXAMETHASONE SOD PHOS INJ 4 MG/ML VIAL ONE; +EPHEDRINE SULFATE INJ 50 MG/ML VIAL ONE; +FENTANYL CITRATE/PF 100MCG/2 ML INJ ONE; +GENTAMICIN 80MG/NS 100 ML 100 ML IV ONE; +HYDROMORPHONE HC2 MG PO; +INDIGOTINDISULFONATE SODIUM 8 MG/ML AMP IJ ONE; +IOPAMIDOL 300MG/ML 50ML INFUS..BTL IV ONE; +KEFLEX125 MG/5 M PO; +LIDOCAINE HCL 2% LOCAL INJ 5 ML SDV VIAL INJ ONE; +MILK OF MA2400 MG/10 PO; +MS CONTIN30 MG PO; +NIFEDIPINE ER30 M1 PO; +ONDANSETRON HCL INJ 2MG/ML 2ML 2 MG/ML VIAL ONE; +POVIDONE IODINE 0.05% 0.05 % ML PO ONE; +PROPOFOL IV EMULSION 10 MG/ML 20 ML VIAL ONE; +SENOKOT8.6 MG PO; +SEVOFLURANE INHAL SOLN 250 ML PEN BTL ONE; +ULTRAM50 MG PO; +ZOFRAN4 MG PO
[2021-02-19 11:20] VITALS: BP 160/98
== END | disposition home or self-care (01) ==
LOC: OR 07:04
PROVIDERS: ATTEND Urology
DX: C67.0 Malignant neoplasm of trigone of bladder (principal); C61 Malignant neoplasm of prostate; N13.30 Unspecified hydronephrosis; N13.5 Crossing vessel and stricture of ureter without hydronephrosis; Z93.6 Other artificial openings of urinary tract status; R00.1 Bradycardia, unspecified; R73.03 Prediabetes; K21.9 Gastro-esophageal reflux disease without esophagitis; I10 Essential (primary) hypertension; Z01.810 Encounter for preprocedural cardiovascular examination; Z01.812 Encounter for preprocedural laboratory examination; Z20.822 Contact with and (suspected) exposure to COVID-19
CPT/HCPCS: 36415; 50431; 52235; 74420; 80048; 85025; 88307; 93005; C1758; J0461; J0690; J1100; J1580; J2001; J2405; J2704; J3010; Q9967; U0002

== ENCOUNTER 2021-02-22 16:39 | Inpatient (IN) | payer MEDICARE ==
[~2021-02-22] VITALS: Ht 170.2 cm; Wt 78.0 kg
[~2021-02-22 16:39] MED LIST changes: -ATROPINE SULFATE 1 MG/ML VIAL ONE; -CEFAZOLIN SOD 1 GM/NS 50ML 50 ML IV ONE; -COLACE100 MG PO; -CYCLOBENZAPRINE10 MG PO; -DEXAMETHASONE SOD PHOS INJ 4 MG/ML VIAL ONE; -EPHEDRINE SULFATE INJ 50 MG/ML VIAL ONE; -FENTANYL CITRATE/PF 100MCG/2 ML INJ ONE; -GENTAMICIN 80MG/NS 100 ML 100 ML IV ONE; -HYDROMORPHONE HC2 MG PO; -INDIGOTINDISULFONATE SODIUM 8 MG/ML AMP IJ ONE; -IOPAMIDOL 300MG/ML 50ML INFUS..BTL IV ONE; -KEFLEX125 MG/5 M PO; -LIDOCAINE HCL 2% LOCAL INJ 5 ML SDV VIAL INJ ONE; -MILK OF MA2400 MG/10 PO; -NIFEDIPINE ER30 M1 PO; -ONDANSETRON HCL INJ 2MG/ML 2ML 2 MG/ML VIAL ONE; -POVIDONE IODINE 0.05% 0.05 % ML PO ONE; -PROPOFOL IV EMULSION 10 MG/ML 20 ML VIAL ONE; -SENOKOT8.6 MG PO; -SEVOFLURANE INHAL SOLN 250 ML PEN BTL ONE; -ULTRAM50 MG PO; -ZOFRAN4 MG PO
[2021-02-22] MEDS ORDERED: SODIUM CHLORIDE 0.9% 1000ML 1,000 ML IV STA (17:05)
[2021-02-22] MEDS ORDERED: ONDANSETRON HCL INJ 2MG/ML 2ML 2 MG/ML VIAL IV STA (17:08)
[2021-02-22] MEDS ORDERED: MORPHINE SULFATE INJ 4 MG/ML INJ 1ML IV STA ×2 (17:08→19:04)
[2021-02-22 17:10] LABS: BASOPHILS % 0.2 % (0.0-1.0); EOSINOPHILS # (AUTO) 0.1 (0.0-0.4); EOSINOPHILS % 1.2 % (0.0-6.0); HEMATOCRIT 45.1 % (38.2-49.6); HEMOGLOBIN 14.6 g/dL (14.0-18.0); LYMPHOCYTES # (AUTO) 1.3 (1.0-3.2); LYMPHOCYTES % 14.1 % (18.0-39.1); MEAN CORPUSCULAR HEMOGLOBIN 26.3 pg (28-32); MEAN CORPUSCULAR HGB CONC 32.4 g/dL (31-35); MEAN CORPUSCULAR VOLUME 81.1 fL (81-99); MONOCYTES # (AUTO) 0.6 (0.2-0.8); MONOCYTES % 6.3 % (4.4-11.3); PLATELET COUNT 438 x10e3/uL (140-360); RED BLOOD COUNT 5.56 x10e6/uL (4.3-5.7); RED CELL DISTRIBUTION WIDTH 12.8 % (11.7-14.4)
[2021-02-22] MEDS ORDERED: SODIUM CHLORIDE 0.9% 1000ML 1,000 ML ONE (17:18)
[2021-02-22 17:28] LABS: ALBUMIN 3.5 g/dL (3.5-5.0); ALBUMIN/GLOBULIN RATIO 0.8 (0.8-2.0); ANION GAP 18.1 mmol/L (8-16); CALCIUM 9.3 mg/dL (8.4-10.2); CREATININE, SERUM 1.39 mg/dL (0.72-1.25); POTASSIUM 4.1 mmol/L (3.5-5.1)
[2021-02-22 17:32] LABS: CLARITY,URINE SL CLOUDY (CLEAR); COLOR,URINE STRAW (YELLOW); KETONES,URINE 2+ (NEGATIVE); LEUKOCYTE ESTERASE ,URINE SMALL (NEGATIVE); NITRITE,URINE NEGATIVE (NEGATIVE); PROTEIN,URINE DIPSTICK >=300 (NEGATIVE); URINE UROBILINOGEN 0.2 mg/dL (0.2 - 1)
[2021-02-22 17:37] LABS: CLARITY,URINE SL CLOUDY (CLEAR); COLOR,URINE STRAW (YELLOW); KETONES,URINE 2+ (NEGATIVE); LEUKOCYTE ESTERASE ,URINE SMALL (NEGATIVE); NITRITE,URINE NEGATIVE (NEGATIVE); PROTEIN,URINE DIPSTICK >=300 (NEGATIVE); URINE UROBILINOGEN 0.2 mg/dL (0.2 - 1)
[2021-02-22] MEDS: PIPERACILLIN/TAZOBACTAM 3.375 GM in SODIUM CHLORIDE 0.9% 50ML 50 ML IV SCH ×2 (17:37→23:56)
[2021-02-22 17:43] LABS: BACTERIA,URINE MODERATE /HPF; WBC,URINE (MAN) 0-5 /HPF (0-5)
[2021-02-22 17:53] LABS: RBC,URINE 21-50 /HPF (0-5)
[2021-02-22 17:54] LABS: BACTERIA,URINE MODERATE /HPF
[2021-02-22] MEDS ORDERED: SODIUM CHLORIDE 0.9% 50ML 50 ML ONE (19:21)
[2021-02-22] MEDS ORDERED: IOPAMIDOL 370 MG/ML 200 ML INFUS..BTL INJ ONE (19:21)
[2021-02-22] MEDS ORDERED: MORPHINE SULFATE INJ 2 MG/ML SYR IV PRN (19:30)
[2021-02-22] MEDS ORDERED: MORPHINE SULFATE INJ 4 MG/ML INJ 1ML IV PRN (19:45)
[2021-02-22] MEDS: SODIUM CHLORIDE 0.9% 1000ML 1,000 ML IV SCH (19:53)
[2021-02-22 19:56] LABS: CREATINE KINASE 45 IU/L (30-200)
[2021-02-22] MEDS ORDERED: HYDRALAZINE HCL 20 MG/ML VIAL IV PRN (20:30)
[2021-02-22 20:42] VITALS: BP 180/106
[2021-02-22 20:50] VITALS: BP 176/97
[2021-02-22] MEDS ORDERED: HYDROMORPHONE HC2 MG PO (22:20)
[2021-02-22] MEDS ORDERED: ULTRAM50 MG PO (22:20)
[2021-02-23] VITALS (8 sets, daily range): BP systolic 128–180; BP diastolic 72–106
[2021-02-23] MEDS: HYDROMORPHONE 1MG/1ML INJ IV PRN ×6 (01:45→20:25)
[2021-02-23 04:18] LABS: BASOPHILS % 0.4 % (0.0-1.0); EOSINOPHILS # (AUTO) 0.1 (0.0-0.4); HEMATOCRIT 43.8 % (38.2-49.6); HEMOGLOBIN 14.2 g/dL (14.0-18.0); LYMPHOCYTES % 19.6 % (18.0-39.1); MEAN CORPUSCULAR HEMOGLOBIN 26.3 pg (28-32); MEAN CORPUSCULAR HGB CONC 32.4 g/dL (31-35); MEAN CORPUSCULAR VOLUME 81.1 fL (81-99); MONOCYTES % 9.5 % (4.4-11.3); NEUTROPHILS # (AUTO) 7.2 (2.1-6.9); PLATELET COUNT 431 x10e3/uL (140-360)
[2021-02-23 04:42] LABS: ALBUMIN 3.2 g/dL (3.5-5.0); ALBUMIN/GLOBULIN RATIO 0.8 (0.8-2.0); ANION GAP 18.8 mmol/L (8-16); CALCIUM 8.8 mg/dL (8.4-10.2); CREATININE, SERUM 1.33 mg/dL (0.72-1.25); POTASSIUM 3.8 mmol/L (3.5-5.1)
[2021-02-23 04:49] LABS: CREATINE KINASE MB 1.5 ng/mL (0-5.0)
[2021-02-23] MEDS: PIPERACILLIN/TAZOBACTAM 3.375 GM in SODIUM CHLORIDE 0.9% 50ML 50 ML IV SCH ×3 (05:39→18:00)
[2021-02-23] MEDS: SODIUM CHLORIDE 0.9% 1000ML 1,000 ML IV SCH ×3 (05:40→19:30)
[2021-02-23] MEDS: ONDANSETRON HCL INJ 2MG/ML 2ML 2 MG/ML VIAL IV PRN ×4 (06:44→17:21)
[2021-02-23] MEDS ORDERED: ACETAMINOPHEN 325 MG TAB PO PRN (10:45)
[2021-02-23] MEDS ORDERED: ZOLPIDEM TARTRATE 5 MG TAB PO PRN (10:45)
[2021-02-23] MEDS ORDERED: DOCUSATE SODIUM 100 MG CAP PO PRN (10:45)
[2021-02-23 11:14] LABS: CHOL/HDL RATIO 3.2 (3.9-4.7)
[2021-02-23] MEDS ORDERED: TRAMADOL HCL 50 MG TAB PO SCH (12:00)
[2021-02-23] MEDS ORDERED: TRAMADOL HCL 50 MG TAB PO PRN (12:30)
[2021-02-23 12:53] LABS: CREATINE KINASE MB 1.6 ng/mL (0-5.0)
[2021-02-23] MEDS ORDERED: CLONIDINE HCL 0.2 MG TAB PO SCH (17:00)
[2021-02-23] MEDS ORDERED: PROMETHAZINE 12.5MG/ NACL 0.9% 12.5 MG/50 ML BAG IV PRN (18:15)
[2021-02-23] MEDS: CLONIDINE HCL 0.2 MG TAB PO SCH (21:03)
[2021-02-24] VITALS (8 sets, daily range): BP systolic 129–177; BP diastolic 81–104
[2021-02-24] MEDS: HYDROMORPHONE 1MG/1ML INJ IV PRN ×6 (00:24→21:12)
[2021-02-24] MEDS: SODIUM CHLORIDE 0.9% 1000ML 1,000 ML IV SCH ×3 (02:33→21:15)
[2021-02-24] MEDS: PIPERACILLIN/TAZOBACTAM 3.375 GM in SODIUM CHLORIDE 0.9% 50ML 50 ML IV SCH ×6 (05:18→23:36)
[2021-02-24] MEDS: NIFEDIPINE CR 30 MG TAB PO SCH (06:37)
[2021-02-24 07:39] LABS: ANION GAP 18.5 mmol/L (8-16); BLOOD UREA NITROGEN 14 mg/dL (7-26); BUN/CREATININE RATIO 12 (6-25); CALCIUM 8.5 mg/dL (8.4-10.2); CARBON DIOXIDE 22 mmol/L (22-29); CHLORIDE 108 mmol/L (98-107); CREATININE, SERUM 1.15 mg/dL (0.72-1.25); EST GLOMERULAR FILTRATION RATE > 60 ML/MIN (60-); GLUCOSE 102 mg/dL (74-118); POTASSIUM 3.5 mmol/L (3.5-5.1); SODIUM 145 mmol/L (136-145)
[2021-02-24] MEDS: ONDANSETRON HCL INJ 2MG/ML 2ML 2 MG/ML VIAL IV PRN ×3 (08:20→16:25)
[2021-02-24] MEDS ORDERED: CYCLOBENZAPRINE HCL 10 MG TAB PO PRN (08:45)
[2021-02-24] MEDS ORDERED: AMLODIPINE BESYLATE 10 MG TAB PO SCH (09:00)
[2021-02-24] MEDS: CLONIDINE HCL 0.2 MG TAB PO SCH ×2 (09:00→21:00)
[2021-02-24] MEDS: BISACODYL 10 MG SUPP PR PRN (19:53)
[2021-02-25] VITALS (8 sets, daily range): BP systolic 134–167; BP diastolic 92–108
[2021-02-25] MEDS: HYDROMORPHONE 1MG/1ML INJ IV PRN ×5 (00:30→21:46)
[2021-02-25] MEDS: SODIUM CHLORIDE 0.9% 1000ML 1,000 ML IV SCH ×3 (03:30→19:44)
[2021-02-25] MEDS: PIPERACILLIN/TAZOBACTAM 3.375 GM in SODIUM CHLORIDE 0.9% 50ML 50 ML IV SCH ×3 (05:03→17:02)
[2021-02-25] MEDS: NIFEDIPINE CR 30 MG TAB PO SCH (08:06)
[2021-02-25] MEDS: CLONIDINE HCL 0.2 MG TAB PO SCH ×2 (08:06→21:42)
[2021-02-25] MEDS: BISACODYL 10 MG SUPP PR PRN (10:36)
[2021-02-25] MEDS: SENNOSIDES 8.6 MG TAB PO SCH (16:55)
[2021-02-25] MEDS: DOCUSATE SODIUM 100 MG CAP PO SCH (16:55)
[2021-02-26 00:32] VITALS: BP 125/91
[2021-02-26] MEDS: ONDANSETRON HCL INJ 2MG/ML 2ML 2 MG/ML VIAL IV PRN (03:39)
[2021-02-26] MEDS: SODIUM CHLORIDE 0.9% 1000ML 1,000 ML IV SCH ×2 (03:39→11:20)
[2021-02-26] MEDS: HYDROMORPHONE 1MG/1ML INJ IV PRN ×2 (04:40→12:54)
[2021-02-26 04:44] VITALS: BP 158/101
[2021-02-26] MEDS: PIPERACILLIN/TAZOBACTAM 3.375 GM in SODIUM CHLORIDE 0.9% 50ML 50 ML IV SCH ×4 (05:47→11:20)
[2021-02-26 06:30] VITALS: BP 157/91
[2021-02-26] MEDS: BISACODYL 10 MG SUPP PR PRN (07:06)
[2021-02-26 07:37] VITALS: BP 153/99
[2021-02-26] MEDS: DOCUSATE SODIUM 100 MG CAP PO SCH (07:58)
[2021-02-26] MEDS: NIFEDIPINE CR 30 MG TAB PO SCH (07:58)
[2021-02-26] MEDS: SENNOSIDES 8.6 MG TAB PO SCH (07:58)
[2021-02-26] MEDS: CLONIDINE HCL 0.2 MG TAB PO SCH (07:58)
[2021-02-26] MEDS ORDERED: SENOKOT8.6 MG PO (08:01)
[2021-02-26] MEDS ORDERED: CYCLOBENZAPRINE10 MG PO (08:01)
[2021-02-26] MEDS ORDERED: ZOFRAN4 MG PO (08:01)
[2021-02-26] MEDS ORDERED: COLACE100 MG PO (08:01)
[2021-02-26] MEDS ORDERED: MILK OF MA2400 MG/10 PO (08:01)
[2021-02-26] MEDS ORDERED: NIFEDIPINE ER30 M1 PO (08:01)
[2021-02-26] MEDS ORDERED: KEFLEX125 MG/5 M PO (08:01)
[2021-02-26] MEDS ORDERED: MAGNESIUM HYDROXIDE 30 ML UDC PO ONE (08:30)
[2021-02-26 08:48] VITALS: BP 153/99
[2021-02-26] MEDS ORDERED: ONDANSETRON HCL 4 MG ORAL DISINTEGRATING TAB PO PRN (10:30)
[2021-02-26 11:49] VITALS: BP 106/71
== END 2021-02-26 13:09 | disposition home or self-care (01) | DRG 687 ==
LOC: ER 17:00 → ERHOLD 19:32 → MED/SURG 21:09
PROVIDERS: ADMIT Internal Medicine; ATTEND Internal Medicine
DX: C67.9 Malignant neoplasm of bladder, unspecified (principal); N13.6 Pyonephrosis; N17.9 Acute kidney failure, unspecified; R73.03 Prediabetes; B95.2 Enterococcus as the cause of diseases classified elsewhere; K59.00 Constipation, unspecified; C61 Malignant neoplasm of prostate; N28.1 Cyst of kidney, acquired; I12.9 Hypertensive chronic kidney disease with stage 1 through stage 4 chronic kidney disease, or unspecified chronic kidney disease; N18.9 Chronic kidney disease, unspecified
CPT/HCPCS: 36415; 74018; 74177; 74420; 80048; 80053; 80061; 81001; 82550; 82553; 82948; 83036; 83605; 84484; 85025; 87040; 87086; 87186; 88307; 93005; 99284; C1758; J0360; J0461; J0690; J1100; J1170; J1580; J2001; J2250; J2270; J2405; J2543; J3010; J7030; Q9967; U0002

== ENCOUNTER 2021-03-29 14:14 | Emergency (ER) | payer MEDICARE ==
[~2021-03-29] VITALS: Ht 172.7 cm; Wt 63.5 kg
[~2021-03-29 14:14] MED LIST changes: +COLACE100 MG PO; +CYCLOBENZAPRINE10 MG PO; +HYDROMORPHONE HC2 MG PO; +KEFLEX125 MG/5 M PO; +MILK OF MA2400 MG/10 PO; +NIFEDIPINE ER30 M1 PO; +SENOKOT8.6 MG PO; +ULTRAM50 MG PO; +ZOFRAN4 MG PO
[2021-03-29] MEDS ORDERED: ONDANSETRON HCL INJ 2MG/ML 2ML 2 MG/ML VIAL IV STA (14:38)
[2021-03-29] MEDS ORDERED: SODIUM CHLORIDE 0.9% 1000ML 1,000 ML IV STA (14:38)
[2021-03-29 15:22] LABS: BASOPHILS % 0.4 % (0.0-1.0); EOSINOPHILS % 0.2 % (0.0-6.0); HEMATOCRIT 43.8 % (38.2-49.6); HEMOGLOBIN 14.3 g/dL (14.0-18.0); LYMPHOCYTES # (AUTO) 1.3 (1.0-3.2); LYMPHOCYTES % 23.7 % (18.0-39.1); MEAN CORPUSCULAR HEMOGLOBIN 25.8 pg (28-32); MEAN CORPUSCULAR HGB CONC 32.6 g/dL (31-35); MEAN CORPUSCULAR VOLUME 78.9 fL (81-99); MONOCYTES # (AUTO) 0.2 (0.2-0.8); MONOCYTES % 4.3 % (4.4-11.3); NEUTROPHILS # (AUTO) 3.8 (2.1-6.9); PLATELET COUNT 677 x10e3/uL (140-360); RED BLOOD COUNT 5.55 x10e6/uL (4.3-5.7); RED CELL DISTRIBUTION WIDTH 15.2 % (11.7-14.4)
[2021-03-29 15:36] LABS: ALBUMIN 3.8 g/dL (3.5-5.0); ALBUMIN/GLOBULIN RATIO 0.9 (0.8-2.0); ANION GAP 20.2 mmol/L (8-16); CALCIUM 9.5 mg/dL (8.4-10.2); CREATININE, SERUM 1.82 mg/dL (0.72-1.25); POTASSIUM 3.2 mmol/L (3.5-5.1)
[2021-03-29] MEDS ORDERED: HYDRALAZINE HCL 20 MG/ML VIAL IV STA (16:03)
[2021-03-29] MEDS ORDERED: POTASSIUM CHLORIDE 20 MEQ TAB CR PO STA (16:46)
[2021-03-29] MEDS ORDERED: ONDANSETRON ODT4 MG PO (17:12)
== END 2021-03-29 17:23 | disposition home or self-care (01) ==
LOC: ER 14:40
DX: R11.2 Nausea with vomiting, unspecified (principal); E86.0 Dehydration; E11.65 Type 2 diabetes mellitus with hyperglycemia; I10 Essential (primary) hypertension; Z85.51 Personal history of malignant neoplasm of bladder
CPT/HCPCS: 36415; 80053; 83690; 85025; 99284; J0360; J2405; J7030

== ENCOUNTER 2021-04-22 12:30 | Emergency (ER) | payer MEDICARE ==
[~2021-04-22] VITALS: Ht 172.7 cm; Wt 63.5 kg
[~2021-04-22 12:30] MED LIST changes: +ONDANSETRON ODT4 MG PO
[2021-04-22 13:26] LABS: CLARITY,URINE CLOUDY (CLEAR); COLOR,URINE YELLOW (YELLOW); LEUKOCYTE ESTERASE ,URINE LARGE (NEGATIVE); NITRITE,URINE NEGATIVE (NEGATIVE); PROTEIN,URINE DIPSTICK >=300 (NEGATIVE)
[2021-04-22 13:26] LABS: BASOPHILS % 0.4 % (0.0-1.0); EOSINOPHILS % 0.8 % (0.0-6.0); HEMATOCRIT 40.7 % (38.2-49.6); HEMOGLOBIN 13.4 g/dL (14.0-18.0); LYMPHOCYTES % 21.2 % (18.0-39.1); MEAN CORPUSCULAR HEMOGLOBIN 26.5 pg (28-32); MEAN CORPUSCULAR HGB CONC 32.9 g/dL (31-35); MEAN CORPUSCULAR VOLUME 80.6 fL (81-99); MONOCYTES # (AUTO) 0.5 (0.2-0.8); MONOCYTES % 10.2 % (4.4-11.3); NEUTROPHILS # (AUTO) 3.3 (2.1-6.9); NEUTROPHILS % 66.8 % (38.7-80.0); PLATELET COUNT 207 x10e3/uL (140-360); RED BLOOD COUNT 5.05 x10e6/uL (4.3-5.7); RED CELL DISTRIBUTION WIDTH 17.9 % (11.7-14.4)
[2021-04-22 13:27] LABS: KETONES,URINE NEGATIVE (NEGATIVE); URINE UROBILINOGEN 0.2 mg/dL (0.2 - 1)
[2021-04-22 13:48] LABS: BACTERIA,URINE FEW /HPF
[2021-04-22 14:00] LABS: ALBUMIN 3.5 g/dL (3.5-5.0); ALBUMIN/GLOBULIN RATIO 0.9 (0.8-2.0); ANION GAP 15.3 mmol/L (8-16); CREATININE, SERUM 1.64 mg/dL (0.72-1.25); POTASSIUM 3.3 mmol/L (3.5-5.1)
[2021-04-22] MEDS ORDERED: CEFTRIAXONE 1 GM in SODIUM CHLORIDE 0.9% 50ML 50 ML IV SCH (16:00)
[2021-04-22] MEDS ORDERED: LIDOCAINE HCL 1% LOCAL INJ 20 ML VIAL ONE (16:52)
[2021-04-22] MEDS ORDERED: SODIUM CHLORIDE 0.9% 250ML 250 ML ONE (16:52)
[2021-04-22] MEDS ORDERED: IOPAMIDOL 300MG/ML 100 ML INFUS..BTL IV ONE (16:57)
[2021-04-22] MEDS ORDERED: CEPHALEXIN500 MG PO (17:37)
== END 2021-04-22 18:00 | disposition home or self-care (01) ==
LOC: ER 12:55
DX: Z43.6 Encounter for attention to other artificial openings of urinary tract (principal); I10 Essential (primary) hypertension; E11.9 Type 2 diabetes mellitus without complications; R05 Cough; Z85.51 Personal history of malignant neoplasm of bladder
CPT/HCPCS: 36415; 50435; 71045; 74176; 80053; 81001; 85025; 87086; 87186; 99284; C1769; J0696; J2001; J7050; Q9967

== ENCOUNTER → 2021-06-11 | Outpatient (CLI) | payer MEDICARE ==
[~2021-06-11] MED LIST changes: +CEPHALEXIN500 MG PO; +FENTANYL CITRATE/PF 100MCG/2 ML INJ ONE; +IOPAMIDOL 370 MG/ML 200 ML INFUS..BTL INJ ONE; +LIDOCAINE HCL 1% LOCAL INJ 20 ML VIAL ONE; +MIDAZOLAM HCL 2 MG/2 ML VIAL ONE; +SODIUM CHLORIDE 0.9% 250ML 250 ML ONE
== END ==
LOC: DX 12:52
PROVIDERS: ATTEND Urology
DX: N13.30 Unspecified hydronephrosis (principal); N13.5 Crossing vessel and stricture of ureter without hydronephrosis
CPT/HCPCS: 50435; C1729; C1887; J2001; J2250; J3010; J7050; Q9967; 99152; 99153